=== PATIENT | female | born 1945 | race African-American/Black ===

== ENCOUNTER 2016-08-23 12:40 | Inpatient (IN) ==
--- NOTE | 2016-08-23 18:07 | Hospitalist History & Physical ---
Assessment and Plan - Time spent with patient Time spent with patient: Greater than 30 minutes (1) Acute on chronic renal failure Status: Acute Assessment and plan: Patient is noted to have acute on chronic renal failure. Her diuretics have been withheld as well as any rate limiting drugs. Will avoid any further nephrotoxic injury or insults. Of note on admission she was taken Aldactone, Coreg, hydrochlorothiazide, lisinopril, ketorolac all of which we will discontinue at this time. Will cautiously hydrate and consult Dr. Stanley Coates to assist. Will repeat laboratories at this time. Current Visit: Yes (2) Hypertension Status: Chronic Assessment and plan: Blood pressures currently well controlled. Will continue to follow. Current Visit: Yes Qualifiers: Hypertension type: essential hypertension Qualified Code(s): I10 - Essential (primary) hypertension (3) Hyperkalemia Status: Acute Assessment and plan: We will repeat electrolytes and renal function at this time and treat as appropriate. It has improved since being treated at [place]. Current Visit: Yes (4) Colon polyps Status: Chronic Assessment and plan: Patient has colon polyps and will need to have continued follow-up once her renal issues have resolved. Current Visit: Yes (5) Asthma Status: Chronic Assessment and plan: She has history of asthma and is currently stable. Current Visit: Yes (6) Diabetes mellitus Status: Chronic Assessment and plan: Patient has diabetes mellitus. At this time we will withhold her oral hypoglycemic agents and place on Accu-Cheks with sliding scale only. Current Visit: Yes Qualifiers: Diabetes mellitus type: type 2 (7) Sinus bradycardia Status: Acute Assessment and plan: Bradycardia has resolved with correction of her hyperkalemia and withholding her beta blockade. Current Visit: Yes History of Present Illness Chief complaint: Kidney failure, weakness History of present illness: Ms. Morales is a 71 year old female with a history of chronic kidney disease, hypertension, diabetes mellitus type 2 with peripheral neuropathy, asthma, arthritis who was admitted to the hospital and normal for decrease in mental status and bradycardia. According to their history she began having some nausea and vomiting on Monday and started taking Zofran. All weekend she had been drowsy and they thought it was secondary to medication. She was seen in the clinic by Dr. Renteria was noted to be bradycardic with a heart rate in the 30s. She was admitted for further care and evaluation and noted to be severely hyperkalemic with symptomatic bradycardia, metabolic acidosis, acute on chronic renal failure and was treated in the ICU with insulin, Kayexalate hydration and discontinuation of rate limiting drugs. Overnight her potassium went from 8.7 down to 6.0 however her creatinine remained fairly stable at 9.93 on admission to 9.64 at the time of transfer. Was felt that she would require transfer for for further evaluation and care including the possibility of dialysis. At this time the patient is awake alert and oriented 3 and states that she is been feeling cold over the past 2 months but denies all other complaints. Her current CODE STATUS is full code. Home Medications Medication Instructions Recorded Confirmed Type Carvedilol [Coreg] 6.25 mg PO BID 08/23/16 08/23/16 History Gabapentin Cap/Tab [Neurontin 300 mg PO DIRECTED 08/23/16 08/23/16 History Cap/Tab] Guaifen/Dextromethorphan/PE 1 tablet PO TID PRN 08/23/16 08/23/16 History [Deconex Dmx Tablet] Iron,Carb/Vit C/Vit B12/Folic 1 tablet PO DAILY 08/23/16 08/23/16 History [Icar-C Plus Tablet] Ketorolac Tab [Toradol Tab] 10 mg PO TID PRN 08/23/16 08/23/16 History Lisinopril/Hydrochlorothiazide 1 tablet PO DAILY 08/23/16 08/23/16 History [Lisinopril-Hctz 20-12.5 mg Tab] Montelukast Tab [Singulair Tab] 10 mg PO DIRECTED 08/23/16 08/23/16 History Ondansetron Tab [Zofran Tab] 4 mg PO Q6HR PRN 08/23/16 08/23/16 History Spironolactone [Aldactone] 25 mg PO DAILY 08/23/16 08/23/16 History Torsemide [Demadex Tab] 10 mg PO BID PRN 08/23/16 08/23/16 History amLODIPine [Norvasc] 10 mg PO DAILY 08/23/16 08/23/16 History hydrOXYzine pamoate [Hydroxyzine 25 mg PO TID PRN 08/23/16 08/23/16 History Pamoate] Medical,Surgical,& Family Hx - Medical History Cardio: History of: Hypertension HEENT: History of: Glaucoma Endocrine: History of: Diabetes Mellitus (NIDDM) Respiratory: History of: Asthma Renal: History of: Renal Failure (ckd) Gastrointestinal: History of: Polyps (prev. colonoscopy showed polyps) Other: History of: Cancer (report states polypss are cancerous) - Surgical History Abdominal Surgeries: Surgical HX of: Colonoscopy (polyps seen) Orthopedic Surgeries: Surgical HX of;: Orthopedic Surgery (ankle surg w/ rods and screws) - Family History Family History: Reports;: Family Diabetes, Family Heart Disease, Family Hypertension - Social History Smoking Status: Never smoker Frequency of Alcohol Use: None Type of Drug Use: None 12 point system: reviewed and no additional remarkable complaints except as stated Exam - Constitutional Vitals: Period Temp Pulse Resp BP Sys/Sarah Pulse Ox Last 24 Hr 96.9 F 77-78 15-17 133-141/55-71 99-100 General appearance: no acute distress - Head Head exam: Present: normocephalic, atraumatic - Eye Eye exam: Present: EOMI Pupils: Present: MARTIN - ENT ENT exam: Present: normal exam, normal oropharynx - Neck Neck exam: Present: normal inspection. Absent: lymphadenopathy, meningismus, tenderness, thyromegaly - Respiratory Respiratory exam: Present: clear to auscultation bilaterally. Absent: rales, rhonchi, wheezes - Cardiovascular Cardiovascular exam: Present: regular rate and rhythm. Absent: gallop, JVD, systolic murmur, tachycardia - GI/Abdominal GI/Abdominal exam: Present: normal bowel sounds, soft. Absent: mass, tenderness , rebound - Extremities Exam Extremities exam: Present: edema. Absent: calf tenderness - Back Exam Back exam: Present: normal inspection - Neurological Exam Neurological exam: Present: alert, oriented X3, CN II-XII intact, motor sensory deficit (Decreased sensation of lower extremities to light touch) - Psychiatric Psychiatric exam: Present: normal affect, normal mood. Absent: agitated, anxious - Skin Skin exam: Present: warm, dry. Absent: erythema, rash Results - Labs Labs: Laboratory studies from [facility] reveal a sodium of 135, potassium 6.0, chloride 101, CO2 of 19, BUN 126, creatinine 9.64, glucose 144, calcium 8.2. Renal ultrasound revealed medical renal disease with renal cortical thinning, no hydronephrosis, small 12 x 6 mm heterogeneous focus at the mid right renal cortex. Chest x-ray revealed blunting of the lateral costophrenic angle suggesting tiny pleural effusions. There is a band of density at the right lung base representing atelectasis. There was cardiomegaly without CHF. There is paratracheal fullness of uncertain etiology. EKG from August 23 at 8:46 AM revealed sinus bradycardia and a right bundle branch block ventricular rate of 53 - EKG EKG shows: bradycardia, sinus rhythm - Diagnostic Findings Procedure: Chest x-ray: report reviewed by me, Ultrasound: report reviewed by me
[2016-08-23] MEDS ORDERED: DEXTROSE 50% 25 GM/50 ML VIAL IV PRN (18:32)
[2016-08-23] MEDS ORDERED: GLUCAGON 1 MG VIAL IM PRN (18:32)
[2016-08-23] MEDS ORDERED: ONDANSETRON 4 MG TABLET PO PRN (18:34)
[2016-08-23] MEDS ORDERED: ALBUTEROL 1.25 MG/3 ML NEB RESP TX PRN (18:35)
[2016-08-23] MEDS: SODIUM CHLORIDE 0.9% 1,000 ML IV SCH (18:49)
[2016-08-23 19:34] LABS: Basophils % 0.2 % (0.0-0.8); Eosinophils # 0.1 10*3/uL (0.0-0.87); Eosinophils % 0.9 % (0.00-10.9); Hematocrit 33.1 VOL% (35.7-47.0); Hemoglobin 10.8 GM/DL (12.0-16.0); Immature Granulocytes % 0.7 %; Immature Granulocytes Absolute 0.11 #; Lymphocytes % 6.6 % (21.3-54.2); Mean Corpuscular HGB Conc 32.6 GM/DL (32-36); Mean Corpuscular Hemoglobin 27 PG (27-34); Mean Corpuscular Volume 81.7 FL (87-102); Mean Platelet Volume 10.9 FL (9.6-12.0); Monocytes # 0.8 10*3/uL (0.11-0.8); Monocytes % 5.2 % (1.7-12.7); Neutrophils # 13.1 10*3/uL (1.4-7.4); Neutrophils % 86.4 % (38.7-73.9); Platelet Count 339 T/CUMM (130-400); Red Blood Count 4.05 MC/CUMM (3.8-5.5); Red Cell Distribution Width 16.2 % (9.3-17.3); White Blood Count 15.1 T/CUMM (4-12)
[2016-08-23 19:46] LABS: Calcium 8.3 MG/DL (8.5-10.1); Osmolality,Calculated 311.5 MOS/KG (273-304); Potassium 5.2 MMOL/L (3.5-5.1)
[2016-08-23] MEDS: ALBUTEROL 1.25 MG/3 ML NEB RESP TX SCH (19:53)
[2016-08-23] MEDS: INSULIN LISPRO 100 UNIT/ML SUBCUT SCH (20:15)
[2016-08-23] MEDS: ENOXAPARIN 30 MG/0.3 ML SYRINGE SUBCUT SCH (20:20)
[2016-08-23] MEDS: MONTELUKAST 10 MG TABLET PO SCH (20:20)
[2016-08-23] MEDS ORDERED: GABAPENTIN 300 MG CAPSULE PO SCH (21:00)
--- NOTE | 2016-08-23 21:33 | Nephrology Consult Note ---
History of Present Illness Chief complaint: ARF on CRF History of present illness: Ms. Morales is a 71 year old female who underwent colonoscopy last week. Polyps were noted which could not be treated endoscopically. She was scheduled to have partial colectomy yesterday. She was bradycardic and nauseated when she presented for preop evaluation. Lab work showed severe hyperkalemia and renal failure. Creatinine was approximately 10 and potassium around 9. She was hospitalized in [place]. Hyperkalemia was treated. She was judged to be volume depleted and given IV fluids. Renal function had improved slightly this morning. Family requested transfer for further care. She has chronic renal failure secondary to diabetic nephropathy. Creatinine was 2.5 when I saw her as an outpatient 2 weeks ago. Home Medications Medication Instructions Recorded Confirmed Type Carvedilol [Coreg] 6.25 mg PO BID 08/23/16 08/23/16 History Gabapentin Cap/Tab [Neurontin 300 mg PO DIRECTED 08/23/16 08/23/16 History Cap/Tab] Guaifen/Dextromethorphan/PE 1 tablet PO TID PRN 08/23/16 08/23/16 History [Deconex Dmx Tablet] Iron,Carb/Vit C/Vit B12/Folic 1 tablet PO DAILY 08/23/16 08/23/16 History [Icar-C Plus Tablet] Ketorolac Tab [Toradol Tab] 10 mg PO TID PRN 08/23/16 08/23/16 History Lisinopril/Hydrochlorothiazide 1 tablet PO DAILY 08/23/16 08/23/16 History [Lisinopril-Hctz 20-12.5 mg Tab] Montelukast Tab [Singulair Tab] 10 mg PO DIRECTED 08/23/16 08/23/16 History Ondansetron Tab [Zofran Tab] 4 mg PO Q6HR PRN 08/23/16 08/23/16 History Spironolactone [Aldactone] 25 mg PO DAILY 08/23/16 08/23/16 History Torsemide [Demadex Tab] 10 mg PO BID PRN 08/23/16 08/23/16 History amLODIPine [Norvasc] 10 mg PO DAILY 08/23/16 08/23/16 History hydrOXYzine pamoate [Hydroxyzine 25 mg PO TID PRN 08/23/16 08/23/16 History Pamoate] Allergies Allergy/AdvReac Type Severity Reaction Status Date / Time No Known Allergies Allergy Verified 08/23/16 18:43 Medical,Surgical,& Family Hx - Medical History Cardio: History of: Hypertension HEENT: History of: Glaucoma Endocrine: History of: Diabetes Mellitus (NIDDM) Respiratory: History of: Asthma Renal: History of: Renal Failure (ckd) Gastrointestinal: History of: Polyps (prev. colonoscopy showed polyps) Other: History of: Cancer (report states polypss are cancerous) - Surgical History Abdominal Surgeries: Surgical HX of: Colonoscopy (polyps seen) Orthopedic Surgeries: Surgical HX of;: Orthopedic Surgery (ankle surg w/ rods and screws) - Family History Family History: Reports;: Family Diabetes, Family Heart Disease, Family Hypertension - Social History Smoking Status: Never smoker Frequency of Alcohol Use: None Type of Drug Use: None Review of Systems 12 point system: reviewed and no additional remarkable complaints except as stated Exam - Vital Signs Vital signs: Period Temp Pulse Resp BP Sys/Sarah Pulse Ox Last 24 Hr 96.9 F-97.5 F 72-85 15-20 133-148/55-71 98-100 Exam: Gen.: Alert. Mildly confused ENT: Pupils equal round reactive to light. EOMs intact. Mucous membranes moist. Neck: Supple. No JVD or bruit. Cardiovascular: Regular rate and rhythm. No murmur rub or gallop Lungs: Clear Abdomen: Soft. Nontender. Positive bowel sounds. No organomegaly Extremities: 1Plus edema Results - Labs CBC & BMP: 08/23/16 18:43 08/23/16 18:51 Assessment and Plan (1) Acute on chronic renal failure Status: Acute Assessment and plan: A 1-year-old woman admitted with: * CRF 3. Creatinine 2.5 on 08/08/2016 * ARF. This appears to be due to a combination of volume depletion, SHUN inhibitor, and diuretic. She likely became acutely volume depleted during prepped for colonoscopy and n.p.o. status before planned surgery. Lisinopril and diuretics discontinued. Agree with IV fluid * Hyperkalemia. Secondary to ARF plus lisinopril plus Aldactone. This has improved with treatment * Diabetes mellitus * Hypertension * Colon polyps Current Visit: Yes (2) Hyperkalemia Status: Acute Current Visit: Yes (3) Sinus bradycardia Status: Acute Current Visit: Yes (4) Colon polyps Status: Chronic Current Visit: Yes (5) Diabetes mellitus Status: Chronic Current Visit: Yes Qualifiers: Diabetes mellitus type: type 2 (6) Hypertension Status: Chronic Current Visit: Yes Qualifiers: Hypertension type: essential hypertension Qualified Code(s): I10 - Essential (primary) hypertension
[2016-08-24] MEDS: ALBUTEROL 1.25 MG/3 ML NEB RESP TX SCH ×4 (02:24→19:53)
[2016-08-24] MEDS: SODIUM CHLORIDE 0.9% 1,000 ML IV SCH ×3 (02:40→20:57)
[2016-08-24 04:25] LABS: Basophils % 0.2 % (0.0-0.8); Eosinophils % 0.2 % (0.00-10.9); Hematocrit 29.5 VOL% (35.7-47.0); Hemoglobin 9.5 GM/DL (12.0-16.0); Immature Granulocytes % 0.6 %; Lymphocytes # 0.9 10*3/uL (1.4-4.0); Lymphocytes % 5.5 % (21.3-54.2); Mean Corpuscular HGB Conc 32.2 GM/DL (32-36); Mean Corpuscular Hemoglobin 27 PG (27-34); Mean Corpuscular Volume 82.9 FL (87-102); Mean Platelet Volume 10.9 FL (9.6-12.0); Monocytes # 0.6 10*3/uL (0.11-0.8); Monocytes % 3.5 % (1.7-12.7); Neutrophils # 14.3 10*3/uL (1.4-7.4); Platelet Count 269 T/CUMM (130-400); Red Blood Count 3.56 MC/CUMM (3.8-5.5); Red Cell Distribution Width 16.3 % (9.3-17.3); White Blood Count 15.9 T/CUMM (4-12)
[2016-08-24 04:56] LABS: Calcium 8.3 MG/DL (8.5-10.1); Magnesium 3.4 MG/DL (1.8-2.4); Osmolality,Calculated 310.4 MOS/KG (273-304); Potassium 5.6 MMOL/L (3.5-5.1)
[2016-08-24] MEDS: INSULIN LISPRO 100 UNIT/ML SUBCUT SCH ×4 (08:00→20:56)
[2016-08-24] MEDS: IRON (CARBONYL)/VIT C/B12/FA TABLET PO SCH (09:25)
[2016-08-24] MEDS: amLODIPine 10 MG TABLET PO SCH (09:25)
--- NOTE | 2016-08-24 11:48 | Hospitalist Progress Note ---
Assessment and Plan (1) Acute on chronic renal failure Status: Acute Assessment and plan: 1)MARLEEN on CKD- resolving with hydration. She likely became dehydrated with colon prep for scope last week and when combined with aldactone and torodal she developed acute renal failure. baseline 2.5 hyperkalemia resolved. aldactone stopped Stop neuronitin until GFR nearer her baseline to avoid unintended somnolence. 2)sinus bradycardia- resolved when potssium corrected. restart coreg. 3)colon polyps- consult general surgery for plan for removal. One was cancerous per daughter. 4)HTN 5)poor appetite- due to uremia 6)ppx- on ppi and lovenox. 7)DM- SSI. 8)transfer to floor. Current Visit: Yes (2) Hypertension Status: Chronic Current Visit: Yes Qualifiers: Hypertension type: essential hypertension Qualified Code(s): I10 - Essential (primary) hypertension (3) Hyperkalemia Status: Acute Current Visit: Yes (4) Colon polyps Status: Chronic Current Visit: Yes (5) Asthma Status: Chronic Current Visit: Yes (6) Diabetes mellitus Status: Chronic Current Visit: Yes Qualifiers: Diabetes mellitus type: type 2 (7) Sinus bradycardia Status: Acute Current Visit: Yes Hospitalist: Subjective Interval history: Mrs Morales is doing much better than she was when I talked to Dr Welsh in [place] yesterday. Her heartrate is normal, her creatinine is down. She is breathing comfortably. Denies pain. Did not want breakfast. I was able also to talk to her daughter. Exam - Constitutional Vitals: Period Temp Pulse Resp BP Sys/Sarah Pulse Ox Last 24 Hr 96.9 F-99.6 F 72-91 15-26 132-151/50-71 97-100 General appearance: no acute distress, morbidly obese - Head Head exam: Present: normocephalic, atraumatic - Eye Eye exam: Present: EOMI. Absent: scleral icterus - Respiratory Respiratory exam: Present: clear to auscultation bilaterally - Cardiovascular Cardiovascular exam: Present: regular rate and rhythm - GI/Abdominal GI/Abdominal exam: Present: normal bowel sounds, soft. Absent: tenderness - Extremities Exam Extremities exam: Present: edema (trace lower extremity edema) Results - Labs CBC & BMP: 08/24/16 03:24 08/24/16 03:24 Lab Results: I have reviewed the past 24 hour labs
[2016-08-24] MEDS: CARVEDILOL 6.25 MG TABLET PO SCH ×2 (12:44→20:56)
[2016-08-24] MEDS ORDERED: ACETAMINOPHEN 325 MG TABLET ONE (13:41)
--- NOTE | 2016-08-24 13:47 | General Surgery Consult Note ---
Assessment and Plan - Time spent with patient Time spent with patient: Greater than 30 minutes (1) Leukocytosis Status: Acute Assessment and plan: Ms. Morales is a 71-year-old -[place] female with history of asthma, diabetes, hypertension and anemia admitted by the hospitalist service with hyperkalemia and bradycardia along with acute renal failure. Patient had undergone a colonoscopy and 3 large polyps were found that were unable to be removed at that time. Patient was transferred to [facility] for nephrology and evaluation by a surgeon. Dr. Coronel will evaluate patient and look at pathology reports. Patient will need to recover from her acute illness before surgery and he may order further testing. Dr. Coronel will see and examine patient and further recommendations to follow. In the meantime patient is running a fever and has increased leukocytosis. Blood, urine, and chest x-ray are all pending. Current Visit: Yes (2) Fever Status: Acute Current Visit: Yes (3) Acute on chronic renal failure Status: Acute Current Visit: Yes (4) Hypertension Status: Chronic Current Visit: Yes Qualifiers: Hypertension type: essential hypertension Qualified Code(s): I10 - Essential (primary) hypertension (5) Hyperkalemia Status: Acute Current Visit: Yes (6) Colon polyps Status: Chronic Current Visit: Yes (7) Asthma Status: Chronic Current Visit: Yes (8) Diabetes mellitus Status: Chronic Current Visit: Yes Qualifiers: Diabetes mellitus type: type 2 History of Present Illness Chief complaint: Poor appetite and weakness History of present illness: Ms. Morales is a 71 year old -[place] female with history of hypertension, diabetes, gastritis, chronic kidney disease admitted by the hospitalist on [address] [facility] with acute on chronic renal failure, hyperkalemia and sinus bradycardia. Patient was found to be anemic around 3 weeks ago and underwent a blood transfusion. She then underwent a colonoscopy in early July where 3 large polyps were found. 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 The pathology for the rectal polypoid mass was cut off on the transfer of paperwork. Patient was then sent to a surgeon on Monday for evaluation. She was found to be bradycardic and hyperkalemic and admitted to the hospital in [place]. Patient was transferred to [facility] for evaluation by nephrology. Dr. Coates has seen and examined patient and feels that her acute renal failure was due to a combination of volume depletion, SHUN inhibitor , and diuretic along with her prep for colonoscopy. Today she has started running a temperature of 100.1 and she is just not feeling well. Her white count is also elevated at 15.9. Her potassium is up a little bit to 5.6 but her creatinine has improved to 7.4. Patient denies headache, cough, congestion , dysphagia, chest pain, shortness of breath, abdominal pain, or lower extremity weakness. Blood cultures, urine cultures, and chest x-ray have all been ordered and are pending. Dr. Coronel has been consulted for evaluation of colon cancer. Home Medications Medication Instructions Recorded Confirmed Type Carvedilol [Coreg] 6.25 mg PO BID 08/23/16 08/23/16 History Gabapentin Cap/Tab [Neurontin 300 mg PO DIRECTED 08/23/16 08/23/16 History Cap/Tab] Guaifen/Dextromethorphan/PE 1 tablet PO TID PRN 08/23/16 08/23/16 History [Deconex Dmx Tablet] Iron,Carb/Vit C/Vit B12/Folic 1 tablet PO DAILY 08/23/16 08/23/16 History [Icar-C Plus Tablet] Ketorolac Tab [Toradol Tab] 10 mg PO TID PRN 08/23/16 08/23/16 History Lisinopril/Hydrochlorothiazide 1 tablet PO DAILY 08/23/16 08/23/16 History [Lisinopril-Hctz 20-12.5 mg Tab] Montelukast Tab [Singulair Tab] 10 mg PO DIRECTED 08/23/16 08/23/16 History Ondansetron Tab [Zofran Tab] 4 mg PO Q6HR PRN 08/23/16 08/23/16 History Spironolactone [Aldactone] 25 mg PO DAILY 08/23/16 08/23/16 History Torsemide [Demadex Tab] 10 mg PO BID PRN 08/23/16 08/23/16 History amLODIPine [Norvasc] 10 mg PO DAILY 06/27/17 06/27/17 History hydrOXYzine pamoate [Hydroxyzine 25 mg PO TID PRN 08/23/16 08/23/16 History Pamoate] Allergies Allergy/AdvReac Type Severity Reaction Status Date / Time No Known Allergies Allergy Verified 08/23/16 18:43 Medical,Surgical,& Family Hx - Medical History Cardio: History of: Hypertension HEENT: History of: Glaucoma Endocrine: History of: Diabetes Mellitus (NIDDM) Respiratory: History of: Asthma Renal: History of: Renal Failure (ckd) Gastrointestinal: History of: Polyps (prev. colonoscopy showed polyps) Other: History of: Cancer (report states polypss are cancerous) - Surgical History Abdominal Surgeries: Surgical HX of: Colonoscopy (polyps seen) Orthopedic Surgeries: Surgical HX of;: Orthopedic Surgery (ankle surg w/ rods and screws) - Family History Family History: Reports;: Family Diabetes, Family Heart Disease, Family Hypertension - Social History Smoking Status: Never smoker Frequency of Alcohol Use: None Type of Drug Use: None Marital Status: Lives With:: Spouse Functional capacity: independent ambulation Review of systems: A complete 10 system review of systems was obtained and pertinent positives and negatives per HPI Exam - Constitutional Vitals: Period Temp Pulse Resp BP Sys/Sarah Pulse Ox Last 24 Hr 96.9 F-100.1 F 72-92 15-26 132-151/50-71 97-100 Exam: Constitutional System: No distress. [No] tremulousness. Head: Normocephalic, atraumatic. Ears, Nose and Throat System: No evidence of Otitis or Mastoiditis. No epistaxis or discharge Eyes System: Pupils equal, round, and reactive. Extraocular muscles intact. Neck: Supple, without adenopathy, [No] jugular venous distention. No thyromegaly , neck mass, or prior surgery apparent. Respiratory System: Chest [clear] to auscultation. Cardiovascular System: Heart with [regular] rate and rhythm. [No] murmur. GI System: Abdomen [soft], [non]tender. [Normo]active bowel sounds present. Musculoskeletal System: limbs with [no] pedal edema. Diminished distal pulses. Neurological System: [No discernable] sensory deficit. [No] aphasia Psychiatric System: Conversation is [rational] Results - Labs CBC & BMP: 08/24/16 03:24 08/24/16 03:24 Lab Results: I have reviewed the past 24 hour labs
[2016-08-24] MEDS: ACETAMINOPHEN 325 MG TABLET PO PRN (13:48)
--- NOTE | 2016-08-24 14:55 | XRay Report ---
Portable chest Date: 08/24/2016 Clinical history: Shortness of breath Comparison: None Technique: Portable AP sitting chest Findings: The heart is minimally enlarged with calcification in the aortic knob. Expiratory chest with diffuse parenchymal findings especially at the lung bases with small pleural effusions. Degenerative changes are noted. Impression: Atelectasis/infiltration/edema at the lung bases with small pleural effusions. The heart is minimally enlarged. PROCEDURE INTERPRETED AT [facility] DEPARTMENT OF RADIOLOGY Final Report Signed by: Dr. Kendy Peter
--- NOTE | 2016-08-24 19:59 | Nephrology Progress Note ---
Nephrology - PN: Subj Interval history: She feels better overall today. Blood pressure has improved. No S OB Exam (PN)-Nephrology - Vital Signs Vital signs: Period Temp Pulse Resp BP Sys/Sarah Pulse Ox Last 24 Hr 97.5 F-100.1 F 72-100 18-26 130-151/50-64 97-100 Exam: Gen.: Alert ENT: Pupils equal round reactive to light. EOMs intact. Mucous membranes moist. Neck: Supple. No JVD or bruit. Cardiovascular: Regular rate and rhythm. No murmur rub or gallop Lungs: Clear Abdomen: Soft. Nontender. Positive bowel sounds. No organomegaly Extremities: 1+ edema - Lab 08/24/16 03:24 08/24/16 03:24 Most recent lab results Calcium 8.3 MG/DL (8.5-10.1) L 08/24/16 03:24 Magnesium 3.4 MG/DL (1.8-2.4) H 08/24/16 03:24 Assessment and Plan (1) Acute on chronic renal failure Status: Acute Assessment and plan: A 1-year-old woman admitted with: * CRF 3. Creatinine 2.5 on 08/08/2016 * ARF. Renal function is improving. Continue IV fluid * Hyperkalemia. Improved * Diabetes mellitus * Hypertension * Colon polyps Current Visit: Yes (2) Hyperkalemia Status: Acute Current Visit: Yes (3) Sinus bradycardia Status: Acute Current Visit: Yes (4) Colon polyps Status: Chronic Current Visit: Yes (5) Diabetes mellitus Status: Chronic Current Visit: Yes Qualifiers: Diabetes mellitus type: type 2 (6) Hypertension Status: Chronic Current Visit: Yes Qualifiers: Hypertension type: essential hypertension Qualified Code(s): I10 - Essential (primary) hypertension
[2016-08-24] MEDS: MONTELUKAST 10 MG TABLET PO SCH (20:56)
[2016-08-24] MEDS: ENOXAPARIN 30 MG/0.3 ML SYRINGE SUBCUT SCH (20:56)
[2016-08-25] MEDS: ALBUTEROL 1.25 MG/3 ML NEB RESP TX SCH ×4 (01:01→19:18)
[2016-08-25] MEDS: SODIUM CHLORIDE 0.9% 1,000 ML IV SCH ×2 (04:28→11:33)
[2016-08-25 07:02] LABS: Calcium 7.8 MG/DL (8.5-10.1); Potassium 5.5 MMOL/L (3.5-5.1)
[2016-08-25] MEDS: amLODIPine 10 MG TABLET PO SCH (08:31)
[2016-08-25] MEDS: PANTOPRAZOLE 40 MG TABLET PO SCH (08:31)
[2016-08-25] MEDS: IRON (CARBONYL)/VIT C/B12/FA TABLET PO SCH (08:31)
[2016-08-25] MEDS: CARVEDILOL 6.25 MG TABLET PO SCH ×2 (08:31→21:02)
[2016-08-25] MEDS: INSULIN LISPRO 100 UNIT/ML SUBCUT SCH ×4 (08:58→20:56)
[2016-08-25] MEDS: cefTRIAXone 1,000 MG in SODIUM CHLORIDE 0.9% 100 ML IV SCH (09:32)
[2016-08-25] MEDS: ALUMINUM/MAGNES/SIMETH MAX STR 30 ML UDCUP PO PRN ×2 (09:57→20:57)
--- NOTE | 2016-08-25 10:56 | Hospitalist Progress Note ---
Assessment and Plan - Time spent with patient Time spent with patient: Less than 30 minutes (1) Acute on chronic renal failure Status: Acute Assessment and plan: 08/25/16 Ms Morales very pleasant female in room 527: Dr armas following for renal function; renal function improving BUN 86 & Creatinine 5.20 down from BUN 103 & creatinine 7.40; Dr Armas in agreement that renal function is improving at this time; will continue to monitor. Glucose 119 this a.m.; A1c 08/24/16 7.2 continue SSI. HTN - BP stable at 120-130 over 57-77 at this time. Heart Rate in the 70's and 80's; Hyperkalemia - improving down 5.5 from 5.6 will repeat a.m. labs Temp is 98.2 this a.m. Current Visit: Yes (2) Fever Status: Acute Current Visit: Yes (3) Hyperkalemia Status: Acute Current Visit: Yes (4) Sinus bradycardia Status: Acute Current Visit: Yes (5) Asthma Status: Chronic Current Visit: Yes (6) Diabetes mellitus Status: Chronic Current Visit: Yes Qualifiers: Diabetes mellitus type: type 2 Hospitalist: Subjective Interval history: 08/25/16 - patient had a good night and is feeling better this a.m.; Denies SOB; cough; fever or chills. Noted a low grade temp @4 a.m. 99.7 but has resolved to 98.2. Exam - Constitutional Vitals: Period Temp Pulse Resp BP Sys/Sarah Pulse Ox Last 24 Hr 98.2 F-100.1 F 83-100 18-22 110-144/57-77 97-100 General appearance: over weight - Head Head exam: Present: normal inspection - Eye Eye exam: Present: EOMI Pupils: Present: MARTIN - Neck Neck exam: Present: normal inspection - Respiratory Respiratory exam: Present: clear to auscultation bilaterally - Cardiovascular Cardiovascular exam: Present: regular rate and rhythm - GI/Abdominal GI/Abdominal exam: Present: normal bowel sounds, soft. Absent: guarding, tenderness, rebound - Extremities Exam Extremities exam: Present: edema - Neurological Exam Neurological exam: Present: alert, oriented X3 - Psychiatric Psychiatric exam: Present: normal affect - Skin Skin exam: Present: normal color, warm, dry Results - Labs CBC & BMP: 08/24/16 03:24 08/25/16 05:38 Lab Results: I have reviewed the past 24 hour labs
--- NOTE | 2016-08-25 11:31 | General Surgery Progress Note ---
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 Plan: Overall patient continues to slowly improve. Ideally, the patient would need a subtotal colectomy given the location of the tumors. However I am not sure she would be able to tolerate such an extensive procedure. I think the best option would be referral to a colorectal specialist for their evaluation and I will discuss this with the patient and her family tomorrow. Current Visit: Yes Subjective Patient reports: Present: no new complaints Exam - Constitutional Vitals: Period Temp Pulse Resp BP Sys/Sarah Pulse Ox Last 24 Hr 98.2 F-100.1 F 83-100 18-20 110-137/57-77 97-100 General appearance: no acute distress - Neck Neck exam: Present: normal inspection - Respiratory Respiratory exam: Present: clear to auscultation bilaterally - Cardiovascular Cardiovascular exam: Present: RRR - GI/Abdominal GI/Abdominal exam: Present: soft (Nontender nondistended. No bleeding reported) - Neurological Exam Neurological exam: Present: alert Speech: Present: normal - Skin Skin exam: Present: normal color Results - Labs CBC & BMP: 08/24/16 03:24 08/25/16 05:38 Lab Results: I have reviewed the past 24 hour labs
--- NOTE | 2016-08-25 15:19 | Nephrology Progress Note ---
Nephrology - PN: Subj Interval history: Mental status normal. She denies shortness of breath. No nausea or vomiting Exam (PN)-Nephrology - Vital Signs Vital signs: Period Temp Pulse Resp BP Sys/Sarah Pulse Ox Last 24 Hr 98.2 F-99.7 F 80-100 18-20 110-135/57-77 97-100 Exam: ENT: Normal Cardiovascular: Regular rate and rhythm. No murmur rub or gallop Lungs: Clear Extremities: 1+ edema - Lab 08/24/16 03:24 08/25/16 05:38 Most recent lab results Calcium 7.8 MG/DL (8.5-10.1) L 08/25/16 05:38 Magnesium 3.4 MG/DL (1.8-2.4) H 08/24/16 03:24 Assessment and Plan (1) Acute on chronic renal failure Status: Acute Assessment and plan: A 1-year-old woman admitted with: * CRF 3. Creatinine 2.5 on 08/08/2016 * ARF. Renal function is improving. IV rate decreased * Hyperkalemia. Improved * Diabetes mellitus * Hypertension * Colon polyps Current Visit: Yes (2) Hyperkalemia Status: Acute Current Visit: Yes (3) Sinus bradycardia Status: Acute Current Visit: Yes (4) Colon polyps Status: Chronic Current Visit: Yes (5) Diabetes mellitus Status: Chronic Current Visit: Yes Qualifiers: Diabetes mellitus type: type 2 (6) Hypertension Status: Chronic Current Visit: Yes Qualifiers: Hypertension type: essential hypertension Qualified Code(s): I10 - Essential (primary) hypertension
[2016-08-25] MEDS: FLUCONAZOLE 200 MG TABLET PO SCH (15:41)
[2016-08-25 16:31] LABS: Hematocrit 30.2 VOL% (35.7-47.0); Hemoglobin 9.7 GM/DL (12.0-16.0)
[2016-08-25] MEDS: MONTELUKAST 10 MG TABLET PO SCH (20:44)
[2016-08-25] MEDS: ENOXAPARIN 30 MG/0.3 ML SYRINGE SUBCUT SCH (20:44)
[2016-08-26] MEDS: ALBUTEROL 1.25 MG/3 ML NEB RESP TX SCH ×4 (00:32→19:05)
[2016-08-26] MEDS: SODIUM CHLORIDE 0.9% 1,000 ML IV SCH ×3 (02:20→13:57)
[2016-08-26 06:00] LABS: Basophils # 0.1 10*3/uL (0.0-0.2); Basophils % 0.3 % (0.0-0.8); Eosinophils # 0.3 10*3/uL (0.0-0.87); Eosinophils % 1.5 % (0.00-10.9); Hematocrit 30.3 VOL% (35.7-47.0); Hemoglobin 9.6 GM/DL (12.0-16.0); Immature Granulocytes % 1.1 %; Immature Granulocytes Absolute 0.19 #; Lymphocytes % 11.2 % (21.3-54.2); Mean Corpuscular HGB Conc 31.7 GM/DL (32-36); Mean Corpuscular Hemoglobin 26 PG (27-34); Mean Corpuscular Volume 82.6 FL (87-102); Mean Platelet Volume 10.4 FL (9.6-12.0); Monocytes % 5.5 % (1.7-12.7); Neutrophils % 80.4 % (38.7-73.9); Platelet Count 271 T/CUMM (130-400); Red Blood Count 3.67 MC/CUMM (3.8-5.5); White Blood Count 17.4 T/CUMM (4-12)
[2016-08-26 06:34] LABS: Calcium 7.8 MG/DL (8.5-10.1); Osmolality,Calculated 306.8 MOS/KG (273-304); Potassium 4.9 MMOL/L (3.5-5.1)
[2016-08-26] MEDS: INSULIN LISPRO 100 UNIT/ML SUBCUT SCH ×5 (08:00→21:19)
[2016-08-26] MEDS: cefTRIAXone 1,000 MG in SODIUM CHLORIDE 0.9% 100 ML IV SCH (08:19)
[2016-08-26] MEDS: FLUCONAZOLE 200 MG TABLET PO SCH (08:19)
[2016-08-26] MEDS: PANTOPRAZOLE 40 MG TABLET PO SCH (08:20)
[2016-08-26] MEDS: IRON (CARBONYL)/VIT C/B12/FA TABLET PO SCH (08:20)
[2016-08-26] MEDS: CARVEDILOL 6.25 MG TABLET PO SCH ×2 (08:20→21:19)
[2016-08-26] MEDS: amLODIPine 10 MG TABLET PO SCH (08:20)
--- NOTE | 2016-08-26 09:32 | Hospitalist Progress Note ---
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 Dr Stanley armas continue to follow for improving renal function; BUN 70 and Creatinine 3.80 down from BUN 86 & Creatinine 5.20 Original Note: Assessment and Plan - Time spent with patient Time spent with patient: Less than 30 minutes (1) Acute on chronic renal failure Status: Acute Assessment and plan: 08/26/16 fever: Resolved at present 98.5 this a.m. WBC 17.4 increased from 15.9 currently on antibiotic coverage; repeat lab in a.m. Clostridium difficile toxin - negative for Cdiff A &/or B ag; 4+ positive for occult blood stool culture - pending final urine culture - pending final (yeast) blood culture - pending Hyperkalemia resolved at present down to 4.9 from 5.5. repeat labs in the a.m. Sinus bradycardia resolved at present heart rate 83-86. Continue current medications and monitor. Asthma: denies any SOB throughout the night: Continue albuterol treatments. Diabetes: Blood sugar 94 this a.m. Plan to continue current coverage with medications Will discuss with Dr. Major for any further recommendations. 08/25/16 Ms Morales very pleasant female in room 527: Dr armas following for renal function; renal function improving BUN 86 & Creatinine 5.20 down from BUN 103 & creatinine 7.40; Dr Armas in agreement that renal function is improving at this time; will continue to monitor. Glucose 119 this a.m.; A1c 08/24/16 7.2 continue SSI. HTN - BP stable at 120-130 over 57-77 at this time. Heart Rate in the 70's and 80's; Hyperkalemia - improving down 5.5 from 5.6 will repeat a.m. labs Temp is 98.2 this a.m. Current Visit: Yes (2) Fever Status: Acute Current Visit: Yes (3) Hyperkalemia Status: Acute Current Visit: Yes (4) Sinus bradycardia Status: Acute Current Visit: Yes (5) Asthma Status: Chronic Current Visit: Yes (6) Diabetes mellitus Status: Chronic Current Visit: Yes Qualifiers: Diabetes mellitus type: type 2 Hospitalist: Subjective Interval history: 08/26/16 sitting up in chair; eating breakfast; verbalize having a better night and verbalizing this morning she feels much better states "I feel much better after sitting up in chair and out of bed". Appears more energetic this morning ; denies any shortness of breath; nausea or vomiting; chills or fever; last temp noted 98.5. Exam - Constitutional Vitals: Period Temp Pulse Resp BP Sys/Sarah Pulse Ox Last 24 Hr 97.4 F-99.1 F 79-91 18-20 133-150/57-70 91-100 General appearance: over weight - Head Head exam: Present: normal inspection - Eye Eye exam: Present: EOMI Pupils: Present: MARTIN - Neck Neck exam: Present: normal inspection - Respiratory Respiratory exam: Present: clear to auscultation bilaterally - Cardiovascular Cardiovascular exam: Present: regular rate and rhythm (79-85 heart rate) - GI/Abdominal GI/Abdominal exam: Present: normal bowel sounds, hypoactive bowel sounds, soft. Absent: guarding, tenderness, rebound - Extremities Exam Extremities exam: Present: normal inspection, full ROM - Neurological Exam Neurological exam: Present: alert, oriented X3 - Psychiatric Psychiatric exam: Present: normal affect - Skin Skin exam: Present: normal color, warm, dry Results - Labs CBC & BMP: 08/26/16 05:21 08/26/16 05:21 Lab Results: I have reviewed the past 24 hour labs
--- NOTE | 2016-08-26 10:19 | General Surgery Progress Note ---
Assessment and Plan - Time spent with patient Time spent with patient: Less than 30 minutes (1) Leukocytosis Status: Acute Assessment and plan: Ms. Morales is a 71-year-old -[place] female with history of asthma, diabetes, hypertension and anemia admitted by the hospitalist service with hyperkalemia and bradycardia along with acute renal failure. Patient had undergone a colonoscopy and 3 large polyps were found that were unable to be removed at that time. Patient was transferred to [facility] for nephrology and evaluation by a surgeon. Dr. Coronel will evaluate patient and look at pathology reports. Patient will need to recover from her acute illness before surgery and he may order further testing. Dr. Coronel will see and examine patient and further recommendations to follow. In the meantime patient is running a fever and has increased leukocytosis. Blood, urine, and chest x-ray are all pending. 08/26/2016 Ms. Morales's renal failure has improved to 3.8 today. She is making good urine and it is clear. Her leukocytosis has risen to 17.4 today. Patient has been afebrile and her vital signs are stable. She is negative for C. difficile, urine is growing yeast and Diflucan was started yesterday. She is also on Rocephin. Blood cultures are negative after 1 day. She does have some positive occult blood in her stool but this is expected from her colon polyps and anemia. 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 Dr. Rodriguez discussed patient having surgery here versus going to a colorectal specialist for evaluation. If patient is still here on Monday Dr. Coronel will be happy to have this discussion with her. If she is discharged home we will make an appointment for follow-up with Dr. Coronel next week for surgical plans. Dr. Rodriguez has seen and examined patient for Dr. Coronel who is out today. Current Visit: Yes (2) Fever Status: Acute Current Visit: Yes (3) Acute on chronic renal failure Status: Acute Current Visit: Yes (4) Hypertension Status: Chronic Current Visit: Yes Qualifiers: Hypertension type: essential hypertension Qualified Code(s): I10 - Essential (primary) hypertension (5) Hyperkalemia Status: Acute Current Visit: Yes (6) Colon polyps Status: Chronic Current Visit: Yes (7) Asthma Status: Chronic Current Visit: Yes (8) Diabetes mellitus Status: Chronic Current Visit: Yes Qualifiers: Diabetes mellitus type: type 2 Subjective Narrative: pt feeling much better this morning. she has already been sitting up in chair and walking to the bathroom w her walker and some assistance. PT and OT are seeing her. she has no complaints of cough or sob, abd pain or dysuria. Exam - Constitutional Vitals: Period Temp Pulse Resp BP Sys/Sarah Pulse Ox Last 24 Hr 97.4 F-99.1 F 79-91 18-20 133-150/57-70 91-100 Exam: 71-year-old -Domin[place] female, no acute distress, alert and oriented Chest clear CV regular rate and rhythm Abdomen obese and nontender Extremities no edema, no sacral or heel wounds noted Results - Labs CBC & BMP: 08/26/16 05:21 08/26/16 05:21 Lab Results: I have reviewed the past 24 hour labs
[2016-08-26] MEDS: DESITIN 4OZ/NYSTATIN 15 GRAM MIXTURE PASTE TOP SCH ×2 (14:41→21:19)
--- NOTE | 2016-08-26 18:16 | Nephrology Progress Note ---
Nephrology - PN: Subj Interval history: She states she feels better overall. No shortness of breath. No abdominal pain or nausea Exam (PN)-Nephrology - Vital Signs Vital signs: Period Temp Pulse Resp BP Sys/Sarah Pulse Ox Last 24 Hr 97.4 F-99.1 F 78-91 16-20 122-142/57-70 91-100 Exam: ENT: Normal Cardiovascular: Regular rate and rhythm. No murmur rub or gallop Lungs: Clear Extremities: 1+ edema - Lab 08/26/16 05:21 08/26/16 05:21 Most recent lab results Calcium 7.8 MG/DL (8.5-10.1) L 08/26/16 05:21 Magnesium 3.4 MG/DL (1.8-2.4) H 08/24/16 03:24 Assessment and Plan (1) Acute on chronic renal failure Status: Acute Assessment and plan: A 1-year-old woman admitted with: * CRF 3. Creatinine 2.5 on 08/08/2016 * ARF. Renal function is improving. IV rate decreased * Hyperkalemia. Resolved Current Visit: Yes (2) Hyperkalemia Status: Acute Current Visit: Yes (3) Sinus bradycardia Status: Acute Current Visit: Yes (4) Colon polyps Status: Chronic Current Visit: Yes (5) Diabetes mellitus Status: Chronic Current Visit: Yes Qualifiers: Diabetes mellitus type: type 2 (6) Hypertension Status: Chronic Current Visit: Yes Qualifiers: Hypertension type: essential hypertension Qualified Code(s): I10 - Essential (primary) hypertension
[2016-08-26] MEDS: MONTELUKAST 10 MG TABLET PO SCH (21:19)
[2016-08-26] MEDS: ENOXAPARIN 30 MG/0.3 ML SYRINGE SUBCUT SCH (21:19)
[2016-08-27] MEDS: ALBUTEROL 1.25 MG/3 ML NEB RESP TX SCH ×4 (00:10→19:23)
[2016-08-27 07:18] LABS: Basophils # 0.1 10*3/uL (0.0-0.2); Basophils % 0.3 % (0.0-0.8); Eosinophils # 0.3 10*3/uL (0.0-0.87); Eosinophils % 1.8 % (0.00-10.9); Hematocrit 28.6 VOL% (35.7-47.0); Hemoglobin 9.1 GM/DL (12.0-16.0); Immature Granulocytes % 0.9 %; Immature Granulocytes Absolute 0.17 #; Lymphocytes # 1.9 10*3/uL (1.4-4.0); Lymphocytes % 10.3 % (21.3-54.2); Mean Corpuscular HGB Conc 31.8 GM/DL (32-36); Mean Corpuscular Hemoglobin 26 PG (27-34); Mean Corpuscular Volume 82.9 FL (87-102); Mean Platelet Volume 10.6 FL (9.6-12.0); Monocytes # 0.9 10*3/uL (0.11-0.8); Neutrophils # 15.1 10*3/uL (1.4-7.4); Neutrophils % 81.7 % (38.7-73.9); Platelet Count 265 T/CUMM (130-400); Red Blood Count 3.45 MC/CUMM (3.8-5.5); Red Cell Distribution Width 16.8 % (9.3-17.3); White Blood Count 18.5 T/CUMM (4-12)
[2016-08-27 07:42] LABS: Calcium 8.2 MG/DL (8.5-10.1); Osmolality,Calculated 303.7 MOS/KG (273-304); Potassium 4.5 MMOL/L (3.5-5.1)
[2016-08-27] MEDS: SODIUM CHLORIDE 0.9% 1,000 ML IV SCH (08:01)
[2016-08-27] MEDS: FLUCONAZOLE 200 MG TABLET PO SCH (08:02)
[2016-08-27] MEDS: IRON (CARBONYL)/VIT C/B12/FA TABLET PO SCH (08:02)
[2016-08-27] MEDS: PANTOPRAZOLE 40 MG TABLET PO SCH (08:02)
[2016-08-27] MEDS: cefTRIAXone 1,000 MG in SODIUM CHLORIDE 0.9% 100 ML IV SCH (08:02)
[2016-08-27] MEDS: CARVEDILOL 6.25 MG TABLET PO SCH ×2 (08:02→20:53)
[2016-08-27] MEDS: amLODIPine 10 MG TABLET PO SCH (08:02)
[2016-08-27] MEDS: DESITIN 4OZ/NYSTATIN 15 GRAM MIXTURE PASTE TOP SCH ×2 (08:04→21:13)
[2016-08-27] MEDS: INSULIN LISPRO 100 UNIT/ML SUBCUT SCH ×4 (08:05→21:12)
--- NOTE | 2016-08-27 10:36 | Nephrology Progress Note ---
Nephrology - PN: Subj Interval history: Ms. Sidhu is seen in follow-up of her acute renal failure which is improving. Creatinine is down to 3.0 today. She has a white count of 18,000 and it is not clear why she has that. She has been afebrile. Her urine culture grew 20-30, 000 colonies of yeast and she is receiving fluconazole for that and empiric ceftriaxone. She does have 1-2+ pretibial edema and her chest is clear. Recent chest x-ray demonstrated no significant infiltrate. I think the current antibiotics are reasonable but it is difficult to say if she has an active infection to explain the rising white count. We will continue to follow-up as her renal function should continue to improve. Exam (PN)-Nephrology - Vital Signs Vital signs: Period Temp Pulse Resp BP Sys/Sarah Pulse Ox Last 24 Hr 98.3 F-99.2 F 72-87 16-20 122-145/58-81 94-100 - Lab 08/27/16 05:55 08/27/16 05:55 Most recent lab results Calcium 8.2 MG/DL (8.5-10.1) L 08/27/16 05:55 Magnesium 2.2 MG/DL (1.8-2.4) 08/27/16 05:55
[2016-08-27] MEDS ORDERED: LEVOFLOXACIN 750 MG TABLET PO ONE (11:15)
[2016-08-27] MEDS ORDERED: FUROSEMIDE 40 MG TABLET PO ONE (11:19)
--- NOTE | 2016-08-27 11:41 | XRay Report ---
History: Elevated white blood cell count Date: 08/27/2016 Study: Chest x-ray PA and lateral Comparison exam: Chest x-ray August 24, 2016 The cardiac silhouette is not enlarged. The mediastinal contours are stable. There is no pulmonary vascular engorgement. There is some patchy and strandy atelectasis/infiltrate in the lower lobes bilaterally. These changes are slightly improved on the right, but slightly increased on the left. There is some increased mild bilateral pleural effusion. Osseous structures are unchanged. Impression: Bilateral lower lobe atelectasis/infiltrate which could represent pneumonia. These changes are slightly improved on the right, but slightly increased on the left. There is some increasing mild bilateral pleural effusion PROCEDURE INTERPRETED AT [facility] DEPARTMENT OF RADIOLOGY Final Report Signed by: Dr. Dasha Espinosa
--- NOTE | 2016-08-27 12:08 | Hospitalist Progress Note ---
Assessment and Plan - Time spent with patient Time spent with patient: Less than 30 minutes (1) Acute on chronic renal failure Status: Acute Assessment and plan: 08/27/16 fever: resolved 98.1 temp this a.m. WBC slight increase to 18.5 from 17.4 Blood culture - pending final results Hyperkalemia: resolved K 4.5 down from 4.9 Sinus bradycardia: resolved HR remains in the 70-80s Asthma: Continue albuterol treatments. Diabetes: BS 126 this a.m. will continue monitor closely and continue medications for coverage. Will not discharge today r/t slight increase of WBC labs without any obvious cause of increase. Will discontinue heart monitor. Will discontinue IV. And will re-evaluate labs in the morning. 08/26/16 fever: Resolved at present 98.5 this a.m. WBC 17.4 increased from 15.9 currently on antibiotic coverage; repeat lab in a.m. Clostridium difficile toxin - negative for Cdiff A &/or B ag; 4+ positive for occult blood stool culture - pending final urine culture - pending final (yeast) blood culture - pending Hyperkalemia resolved at present down to 4.9 from 5.5. repeat labs in the a.m. Sinus bradycardia resolved at present heart rate 83-86. Continue current medications and monitor. Asthma: denies any SOB throughout the night: Continue albuterol treatments. Diabetes: Blood sugar 94 this a.m. Plan to continue current coverage with medications Will discuss with Dr. Major for any further recommendations. 08/25/16 Ms Morales very pleasant female in room 527: Dr armas following for renal function; renal function improving BUN 86 & Creatinine 5.20 down from BUN 103 & creatinine 7.40; Dr Armas in agreement that renal function is improving at this time; will continue to monitor. Glucose 119 this a.m.; A1c 08/24/16 7.2 continue SSI. HTN - BP stable at 120-130 over 57-77 at this time. Heart Rate in the 70's and 80's; Hyperkalemia - improving down 5.5 from 5.6 will repeat a.m. labs Temp is 98.2 this a.m. Current Visit: Yes (2) Fever Status: Acute Current Visit: Yes (3) Hyperkalemia Status: Acute Current Visit: Yes (4) Sinus bradycardia Status: Acute Current Visit: Yes (5) Asthma Status: Chronic Current Visit: Yes (6) Diabetes mellitus Status: Chronic Current Visit: Yes Qualifiers: Diabetes mellitus type: type 2 Hospitalist: Subjective Interval history: 08/27/16 Ms Sidhu more energetic this a.m. Verbalized a good night, denies fever or chills, or cough. Creatinine is improved at 3.00. Her H&H remains stable. WBC had a slight increase 18.5 from 17.4; unsure why she had an increase. She urine culture grew yeast and is receiving fluconazole for that and has been on empiric ceftriaxone. Changed antibiotic to oral levaquin. This a.m. chest xray bilateral low lobe atelectasis/infiltrate which could represent pneumonia; these changes are slighlty improved on the right and left; there is some increasing mild bilateral pleural effusion. . Exam - Constitutional Vitals: Period Temp Pulse Resp BP Sys/Sarah Pulse Ox Last 24 Hr 98.3 F-99.2 F 72-87 16-20 122-145/58-81 94-100 General appearance: over weight - Head Head exam: Present: normal inspection - Eye Eye exam: Present: EOMI Pupils: Present: MARTIN - Neck Neck exam: Present: normal inspection - Respiratory Respiratory exam: Present: clear to auscultation bilaterally - Cardiovascular Cardiovascular exam: Present: regular rate and rhythm - GI/Abdominal GI/Abdominal exam: Present: normal bowel sounds, soft. Absent: tenderness, rebound - Extremities Exam Extremities exam: Present: edema (2+ bilateral) - Neurological Exam Neurological exam: Present: alert, oriented X3 - Psychiatric Psychiatric exam: Present: normal affect, normal mood - Skin Skin exam: Present: normal color, warm, dry Results - Labs CBC & BMP: 08/27/16 05:55 08/27/16 05:55 Lab Results: I have reviewed the past 24 hour labs - Diagnostic Findings Procedure: X-ray: report reviewed by me (Bilateral lower lobe atelectasis/ infiltrate which could represent pnuemonia; these changes are slightly improved on the right and slighly increase of left; there is come increasing mild bilateral pleural effusion)
[2016-08-27] MEDS ORDERED: CALCIUM CARBONATE CHEW 500 MG TABLET PO PRN (14:46)
[2016-08-27] MEDS: MONTELUKAST 10 MG TABLET PO SCH (20:53)
[2016-08-27] MEDS: ENOXAPARIN 30 MG/0.3 ML SYRINGE SUBCUT SCH (21:13)
[2016-08-28] MEDS: ALBUTEROL 1.25 MG/3 ML NEB RESP TX SCH ×4 (00:24→19:51)
[2016-08-28] MEDS: ACETAMINOPHEN 325 MG TABLET PO PRN ×2 (00:28→16:57)
[2016-08-28 05:57] LABS: Basophils % 0.3 % (0.0-0.8); Eosinophils # 0.3 10*3/uL (0.0-0.87); Eosinophils % 1.9 % (0.00-10.9); Hematocrit 26.7 VOL% (35.7-47.0); Hemoglobin 8.5 GM/DL (12.0-16.0); Immature Granulocytes % 0.6 %; Immature Granulocytes Absolute 0.09 #; Lymphocytes # 1.8 10*3/uL (1.4-4.0); Lymphocytes % 12.8 % (21.3-54.2); Mean Corpuscular HGB Conc 31.8 GM/DL (32-36); Mean Corpuscular Hemoglobin 26 PG (27-34); Mean Corpuscular Volume 82.9 FL (87-102); Mean Platelet Volume 10.1 FL (9.6-12.0); Monocytes % 6.8 % (1.7-12.7); Neutrophils # 10.9 10*3/uL (1.4-7.4); Neutrophils % 77.6 % (38.7-73.9); Platelet Count 234 T/CUMM (130-400); Red Blood Count 3.22 MC/CUMM (3.8-5.5); Red Cell Distribution Width 16.6 % (9.3-17.3)
[2016-08-28 06:49] LABS: Calcium 8.6 MG/DL (8.5-10.1); Osmolality,Calculated 297.6 MOS/KG (273-304); Potassium 4.3 MMOL/L (3.5-5.1)
[2016-08-28] MEDS: INSULIN LISPRO 100 UNIT/ML SUBCUT SCH ×4 (07:34→21:18)
[2016-08-28] MEDS: FLUCONAZOLE 200 MG TABLET PO SCH (08:17)
[2016-08-28] MEDS: DESITIN 4OZ/NYSTATIN 15 GRAM MIXTURE PASTE TOP SCH ×2 (08:18→21:18)
[2016-08-28] MEDS: PANTOPRAZOLE 40 MG TABLET PO SCH (08:18)
[2016-08-28] MEDS: CARVEDILOL 6.25 MG TABLET PO SCH ×2 (08:18→21:18)
[2016-08-28] MEDS: IRON (CARBONYL)/VIT C/B12/FA TABLET PO SCH (08:18)
[2016-08-28] MEDS: amLODIPine 10 MG TABLET PO SCH (08:18)
--- NOTE | 2016-08-28 09:38 | Nephrology Progress Note ---
Nephrology - PN: Subj Interval history: Ms. Morales is seen in follow-up of her acute renal failure. Her creatinine continues to fall toward her baseline. Creatinine today is 2.7. White blood cell count also is lower now 14,000 from 18,000. She is afebrile and feels well and hopes to go home. Her only complaint is of "gas" and she says the only way to treat that is by allowing her home so that she can eat her usual diet. From a renal standpoint I think she could be managed at home since she is now drinking well. Exam (PN)-Nephrology - Vital Signs Vital signs: Period Temp Pulse Resp BP Sys/Sarah Pulse Ox Last 24 Hr 97.6 F-100.0 F 63-83 16-96 118-152/49-70 96-99 - Lab 08/28/16 04:50 08/28/16 04:50 Most recent lab results Calcium 8.6 MG/DL (8.5-10.1) 08/28/16 04:50 Magnesium 2.2 MG/DL (1.8-2.4) 08/27/16 05:55
--- NOTE | 2016-08-28 10:48 | Hospitalist Progress Note ---
<Zach Campos - Last Filed: 08/28/16 10:45> Assessment and Plan (1) Acute on chronic renal failure Status: Acute Assessment and plan: Noted improvement in renal function; BUN noted at 38 creatinine at 2.70 today down from 52 and 3.0 yesterday. Nephrology is following. She will definitely need to see nephrology in the outpatient setting. We want to watch renal function 1 additional day; if no significant changes we will discharge tomorrow. Current Visit: Yes (2) Leukocytosis Status: Acute Assessment and plan: Noted decrease in WBCs; WBCs noted at 14 today down from 18.5. Antibiotics changed to p.o. on yesterday. We will continue Levaquin as previously ordered. Current Visit: Yes Hospitalist: Subjective Interval history: Patient seen and examined; chart reviewed. No significant overnight changes reported. Noted improvement in renal function; BUN noted at 38 creatinine 2.70 down from 52 and 3.0 WBCs down to 14.0. If no significant overnight changes; patient will be discharged home tomorrow morning. Exam - Constitutional Vitals: Period Temp Pulse Resp BP Sys/Sarah Pulse Ox Last 24 Hr 97.6 F-100.0 F 63-88 16-96 118-152/49-70 96-99 General appearance: normal weight, no acute distress - Head Head exam: Present: normal inspection, normocephalic, atraumatic - Eye Eye exam: Present: EOMI. Absent: conjunctival injection Pupils: Present: MARTIN, normal accommodation - ENT ENT exam: Present: normal exam, normal external ear exam, normal oropharynx - Neck Neck exam: Present: normal inspection. Absent: lymphadenopathy, meningismus, thyromegaly - Respiratory Respiratory exam: Present: clear to auscultation bilaterally. Absent: rales, rhonchi, stridor, wheezes - Cardiovascular Cardiovascular exam: Present: regular rate and rhythm - GI/Abdominal GI/Abdominal exam: Present: normal bowel sounds, soft - Extremities Exam Extremities exam: Present: normal inspection, normal capillary refill. Absent: edema - Back Exam Back exam: Present: normal inspection - Neurological Exam Neurological exam: Present: alert, oriented X3, CN II-XII intact - Psychiatric Psychiatric exam: Present: normal affect, normal mood - Skin Skin exam: Present: normal color, warm, dry Results - Labs CBC & BMP: 08/28/16 04:50 08/28/16 04:50 Lab Results: I have reviewed the past 24 hour labs <KoltonWilmar brown - Last Filed: 08/28/16 14:34> Exam - Constitutional Vitals: Period Temp Pulse Resp BP Sys/Sarah Pulse Ox Last 24 Hr 97.6 F-100.0 F 68-88 16-96 108-152/60-70 94-99 Results - Labs CBC & BMP: 08/28/16 04:50 08/28/16 04:50 - Impressions Patient seen and examined. Chart reviewed. Patient had a low grade fever of 100.0 today. Otherwise, she is hemodynamically and clinically stable. I have reviewed the progress note by TEDDY Campos, and I agree with the documentation in addition to the following: Active Issues: 1. Suspected pneumonia, cxray from 08/27/16 showed bilateral lower lobe infiltrate /atelectasis with slight increase on the left. Her leukocytosis has improved. She has low grade fevers. Will continue antibiotics and follow up chest x-ray. As long as fevers don't worsen and leukocytosis remains stable, can likely discharge on tomorrow. 2. h/o Asthma: stable; continue current brochodilator therapy 2. Funguria: on anti fungal; check qtc since on levaquin 3. Leukocytosis, improving 4. Acute on CKD: improving; continue to monitor; appreciate help by nephrology 5. Hyperkalemia: resolved 6. Sinus bradycardia: resolved; likely 2nd to previous hyperK state 7. DM: sugars improving; continue current therapy 8. Disposition: likely d/c tomorrow with PCM and nephrology follow up
[2016-08-28] MEDS ORDERED: SIMETHICONE CHEW 80 MG TABLET PO PRN (14:25)
--- NOTE | 2016-08-28 15:48 | XRay Report ---
History: Pneumonia Date: 08/28/2016 Study: Chest x-ray PA and lateral Comparison exam: 08/27/2016 There is continued patchy and strandy atelectasis/infiltrate in the right lower lobe, mildly increased. There is mild bilateral pleural effusion, right greater than left, as before. The cardiomediastinal silhouette is unchanged. The pulmonary vasculature is not engorged. The osseous structures are unchanged. Impression: Mildly increased pneumonia in the right lung base compared to the previous study PROCEDURE INTERPRETED AT [facility] DEPARTMENT OF RADIOLOGY Final Report Signed by: Dr. Dasha Espinosa
--- NOTE | 2016-08-28 18:05 | CT Report ---
History: Acute left lower abdominal pain Date: 08/28/2016 Study: CT abdomen and pelvis without contrast Comparison exam: No previous available Technique: Spiral CT sections were obtained from the lung bases to the pubic symphysis without contrast. The CT exam was performed using one or more of the following dose reduction techniques: Automated exposure control, adjustment of the mA and/or kV according to patient size, or use of iterative reconstruction technique. CT abdomen: There is some continued patchy right lower lobe pneumonia. There is mild platelike subsegmental atelectasis in the lung bases. There is mild bilateral pleural effusion. There is no evidence of pneumoperitoneum. The liver, bile ducts, contracted gallbladder, spleen, and adrenal glands are unremarkable. There is moderate diffuse fatty infiltration of the pancreas without focal pancreatic lesion of a gross nature. There is no radiopaque renal or ureteral stone. There is no gross renal parenchymal mass. There is some mild retroperitoneal lymphadenopathy, including a 10.2 mm short axis diameter left para-aortic node. The appendix is normal in caliber without obvious appendicitis. There is scattered diverticulosis, though no gross diverticulitis. The lack of oral contrast limits evaluation for wall thickening. There is no aneurysm of the moderately calcified abdominal aorta. There is irregularity and sclerosis of the endplates at L3-L4. This could be related to old healed discitis or chronic discitis. CT pelvis: Some small calcified fibroids are noted in the uterus. There is nonspecific mild trace free fluid in the pelvis. Impression: There is diverticulosis, though no evidence of gross diverticulitis Right lower lobe pneumonia Mild bilateral pleural effusion Sclerosis and irregularity of the opposing endplates at L3-L4 would suggest old healed discitis or chronic discitis PROCEDURE INTERPRETED AT [facility] DEPARTMENT OF RADIOLOGY Final Report Signed by: Dr. Dasha Espinosa
[2016-08-28] MEDS: ENOXAPARIN 30 MG/0.3 ML SYRINGE SUBCUT SCH (21:18)
[2016-08-28] MEDS: MONTELUKAST 10 MG TABLET PO SCH (21:18)
[2016-08-29] MEDS: ALBUTEROL 1.25 MG/3 ML NEB RESP TX SCH ×2 (00:26→07:33)
[2016-08-29 06:31] LABS: Basophils # 0.1 10*3/uL (0.0-0.2); Basophils % 0.4 % (0.0-0.8); Eosinophils # 0.3 10*3/uL (0.0-0.87); Eosinophils % 2.4 % (0.00-10.9); Hematocrit 27.4 VOL% (35.7-47.0); Hemoglobin 8.7 GM/DL (12.0-16.0); Immature Granulocytes Absolute 0.13 #; Lymphocytes # 1.9 10*3/uL (1.4-4.0); Mean Corpuscular HGB Conc 31.8 GM/DL (32-36); Mean Corpuscular Hemoglobin 26 PG (27-34); Mean Corpuscular Volume 83.3 FL (87-102); Mean Platelet Volume 9.9 FL (9.6-12.0); Monocytes % 7.7 % (1.7-12.7); Neutrophils # 10.1 10*3/uL (1.4-7.4); Neutrophils % 74.5 % (38.7-73.9); Platelet Count 227 T/CUMM (130-400); Red Blood Count 3.29 MC/CUMM (3.8-5.5); Red Cell Distribution Width 16.3 % (9.3-17.3); White Blood Count 13.6 T/CUMM (4-12)
--- NOTE | 2016-08-29 06:51 | EKG Report ---
Stationary ECG Study [facility] Test Date: 08/29/2016 6:50:20 AM Pat Name: LOURDES HEMPHILL Department: Room: 527 Gender: F At Risk Paraprofessional: JUAN RAMON : 1945 Requested by: Wilmar [facility] Order Number: [id number] Reading MD: KAHLIL RODGERS Intervals [place] Rate: 69 P: 77 NM: 162 QRS: -77 QRSD: 121 T: 45 QT: 419 QTc: 438 Interpretive Statements SINUS RHYTHM MARKED LEFT AXIS DEVIATION RIGHT BUNDLE BRANCH BLOCK Electronically Signed On 08-29-16 08:56:30 CDT by KAHLIL RODGERS [email or web address]
[2016-08-29 06:58] LABS: Calcium 8.4 MG/DL (8.5-10.1); Magnesium 1.7 MG/DL (1.8-2.4); Osmolality,Calculated 291.8 MOS/KG (273-304); Potassium 4.2 MMOL/L (3.5-5.1)
[2016-08-29] MEDS ORDERED: MAGNESIUM SULF RIDER 2 GM in PREMIX 1 EACH IV ONE (07:22)
[2016-08-29] MEDS: INSULIN LISPRO 100 UNIT/ML SUBCUT SCH (08:03)
[2016-08-29 08:17] VITALS: BP 129/62
[2016-08-29] MEDS: FLUCONAZOLE 200 MG TABLET PO SCH (08:49)
[2016-08-29] MEDS: CARVEDILOL 6.25 MG TABLET PO SCH (08:49)
[2016-08-29] MEDS: amLODIPine 10 MG TABLET PO SCH (08:49)
[2016-08-29] MEDS: PANTOPRAZOLE 40 MG TABLET PO SCH (08:49)
[2016-08-29] MEDS: IRON (CARBONYL)/VIT C/B12/FA TABLET PO SCH (08:49)
[2016-08-29] MEDS: DESITIN 4OZ/NYSTATIN 15 GRAM MIXTURE PASTE TOP SCH (08:50)
[2016-08-29] MEDS ORDERED: MAGNESIUM OXIDE 400 MG TABLET PO ONE (09:17)
--- NOTE | 2016-08-29 09:33 | Discharge Summary ---
Hospital Course - Hospital Course Hospital Course: Mrs Morales presented from [place] with hyperkalemia, MARLEEN on CKD, and bradycardia. She had developed this after colon prep for Cscope which found malignant polyps. She was also on ACEI, aldactone and torodol routinely. Her bradycardia improved when her potassium came down with kayexalate. Her renal function returned to baseline over days with IVF hydration. She has been feeling well for several days now. She ran low grade temps and had an elevated WBC but no focal symptoms. Her CXR showed LLL infiltrate after she was adequately hydrated and her WBC has improved with antibiotics. A few days ago she was changed to oral levaquin and she will continue this as an outpatient to complete treatment. She will stop aldactone, ACEI, torodol. She will change torsemide to 10 mg once a day instead of twice for now. She will see Dr Infante for follow up CXR. She will see her switch coupler DR Coates in a month. She will see Dr Coronel in his clinic next week to finalize plans for surgery for her malignant polyp and the other benign ones found at recent cscope. - Time spent with patient Time with patient DS: Greater than 30 minutes (coordination of care for discharge with surgery, nursing, patient, exam, medicine reconciliation, documentation.) Diagnosis - Discharge Diagnosis (1) Acute on chronic renal failure Status: Resolved (2) Hypertension Status: Chronic (3) Hyperkalemia Status: Resolved (4) Colon polyps Status: Chronic (5) Asthma Status: Chronic (6) Diabetes mellitus Status: Chronic (7) Sinus bradycardia Status: Resolved Specialty Discharge - Follow Up or Referrals Follow up with: Dr Julian Infante [Other] (2 weeks with CXR) Stanley Coates MD [Physician] - 1 Month Jose A Coronel MD [Physician] - (nexrt week) Discharge Plan - Discharge Data Disposition: Disch To Home/Self Care Condition at Discharge: Stable Discharge Diet: diabetic diet, heart healthy Activity: resume usual activities as tolerated - Discharge Medications New Fluconazole Tab [Diflucan Tab] 200 mg PO DAILY #5 tablet Pantoprazole Tab [Protonix Tab] 40 mg PO DAILY #30 tablet Simethicone Chew Tab [Mylicon Chew Tab] 80 mg PO BID PRN tablet PRN Reason: Gas Torsemide [Demadex Tab] 10 mg PO DAILY #30 tablet Calcium Carbonate Chew [Tums] 2 tablet PO QID PRN tablet PRN Reason: Dyspepsia Levofloxacin Tab [Levaquin Tab] 500 mg PO Q48H #4 tablet Continue Guaifen/Dextromethorphan/PE [Deconex Dmx Tablet] 1 tablet PO TID PRN PRN Reason: Congestion Ondansetron Tab [Zofran Tab] 4 mg PO Q6HR PRN PRN Reason: Nausea hydrOXYzine pamoate [Hydroxyzine Pamoate] 25 mg PO TID PRN PRN Reason: Anxiety amLODIPine [Norvasc] 10 mg PO DAILY Gabapentin Cap/Tab [Neurontin Cap/Tab] 300 mg PO DIRECTED Carvedilol [Coreg] 6.25 mg PO BID Montelukast Tab [Singulair Tab] 10 mg PO DIRECTED Iron,Carb/Vit C/Vit B12/Folic [Icar-C Plus Tablet] 1 tablet PO DAILY Discontinued Lisinopril/Hydrochlorothiazide [Lisinopril-Hctz 20-12.5 mg Tab] 1 tablet PO DAILY Ketorolac Tab [Toradol Tab] 10 mg PO TID PRN PRN Reason: Pain Spironolactone [Aldactone] 25 mg PO DAILY - Follow Up or Referral Follow Up: Dr Julian Infante [Other] (2 weeks with CXR) Jose A Coronel MD [Physician] - (nexrt week) Stanley Coates MD [Physician] - 1 Month - Forms/Instructions Exam - Constitutional Vitals: Period Temp Pulse Resp BP Sys/Sarah Pulse Ox Last 24 Hr 97.4 F-98.8 F 66-103 16-20 108-129/53-70 94-100 General appearance: normal weight, no acute distress - Head Head exam: Present: normocephalic, atraumatic - Eye Eye exam: Present: EOMI. Absent: scleral icterus - Respiratory Respiratory exam: Present: clear to auscultation bilaterally - Cardiovascular Cardiovascular exam: Present: regular rate and rhythm - GI/Abdominal GI/Abdominal exam: Present: normal bowel sounds, soft. Absent: tenderness - Extremities Exam Extremities exam: Absent: edema Discharge Results Procedures and tests throughout hospitalization: Pending Orders 08/24/16 13:33 Blood Culture Stat 08/25/16 13:50 Occult Blood, Stool Stat stool [C. Diff Toxins A & B] Stat Labs on day of discharge: Labs from last 24 hours 08/29/16 08/29/16 08/28/16 05:42 05:42 19:17 WBC 13.6 H RBC 3.29 L Hgb 8.7 L Hct 27.4 L MCV 83.3 L MCH 26 L MCHC 31.8 L RDW 16.3 Plt Count 227 MPV 9.9 Neut % (Auto) 74.5 H Lymph % (Auto) 14.0 L [place] % (Auto) 7.7 Eos % (Auto) 2.4 Baso % (Auto) 0.4 Neut # (Auto) 10.1 H Lymph # (Auto) 1.9 [place] # (Auto) 1.0 H Eos # (Auto) 0.3 Baso # (Auto) 0.1 Immature Gran % 1.0 Nucleated RBC % 0.0 Immature Gran # 0.13 Nucleated RBCs # 0.00 Sodium 144 Potassium 4.2 Chloride 111 H Carbon Dioxide 24 Anion Gap 13.2 BUN 29 H Creatinine 2.50 H GFR Calculation 22 BUN/Creatinine Ratio 11.00 Glucose 93 POC Glucose 143 H Calculated Osmolality 291.8 Calcium 8.4 L Magnesium 1.7 L 08/28/16 08/28/16 08/28/16 16:11 11:57 07:45 WBC RBC Hgb Hct MCV MCH MCHC RDW Plt Count MPV Neut % (Auto) Lymph % (Auto) [place] % (Auto) Eos % (Auto) Baso % (Auto) Neut # (Auto) Lymph # (Auto) [place] # (Auto) Eos # (Auto) Baso # (Auto) Immature Gran % Nucleated RBC % Immature Gran # Nucleated RBCs # Sodium Potassium Chloride Carbon Dioxide Anion Gap BUN Creatinine GFR Calculation BUN/Creatinine Ratio Glucose POC Glucose 195 H 180 H 113 H Calculated Osmolality Calcium Magnesium Preliminary micro results at discharge 08/24/16 13:33 Blood Culture - Preliminary Blood No growth at 3 days 08/24/16 13:33 Blood Culture - Preliminary Blood No growth at 3 days DS: Provider Date of admission: 08/23/16 18:32 Primary care physician: . No PCP Attending physician on admission: Theresa Major MD Consults: 08/23/16 18:32 Consult to Physician [CONS] Routine Comment: MARLEEN/CKD, hyperkalemia Consulting Provider: Stanley Coates Person Notified: escobar Date Notified: 08/24/16 Time Notified: 08:36 Consult Notification Comment: clinic stated MD aware 08/24/16 12:26 Consult to Physician [CONS] Routine Comment: colon cancer Consulting Provider: Jose A Coronel Person Notified: [email or web address] Date Notified: 08/24/16 Time Notified: 14:50 08/25/16 08:12 Consult to Case Mgmt/Social Srvs [CONS] Routine Reason for Case Mgmt/Social Srvs: Swingbed/SNF/Long-Term Consult to Occupational Therapy [CONS] Routine Reason for Occupational Therapy: Weakness Consult to Physical Therapy [CONS] Routine Reason for Physical Therapy: Weakness Discharging clinician: Theresa Major MD
--- NOTE | 2016-08-29 09:44 | Nephrology Progress Note ---
Nephrology - PN: Subj Interval history: Ms. Morales is seen in follow-up of her renal impairment. Her serum creatinine is down to 2.5 and she is anxious to be discharged. She has a clear chest and is in no distress no changes are made and she will be discharged today. Exam (PN)-Nephrology - Vital Signs Vital signs: Period Temp Pulse Resp BP Sys/Sarah Pulse Ox Last 24 Hr 97.4 F-98.8 F 66-103 16-20 108-129/53-70 94-100 - Lab 08/29/16 05:42 08/29/16 05:42 Most recent lab results Calcium 8.4 MG/DL (8.5-10.1) L 08/29/16 05:42 Magnesium 1.7 MG/DL (1.8-2.4) L 08/29/16 05:42 Specialty Discharge - Follow Up or Referrals Follow up with: Dr Julian Infante [Other] (2 weeks with CXR) Jose A Coronel MD [Physician] - (nexrt week) Stanley Coates MD [Physician] - 1 Month
[2016-08-29] MEDS ORDERED: LEVOFLOXACIN 500 MG TABLET PO SCH (11:30)
--- NOTE | 2016-08-29 11:37 | Event Note ---
Patient seen this morning on rounds. Discussed my recommendations for colorectal surgery referral with the patient and family member present. They state they would like to go to [place]. I will see them in my office next week to arrange that referral.
== END 2016-08-29 11:04 | disposition swing bed (61) | DRG 683 ==
LOC: N.CC 16:50 → SUATTDRO 18:32 → N.5E 08-24 12:25
PROVIDERS: ADMIT Internal Medicine; ATTEND Internal Medicine

== ENCOUNTER 2017-11-25 02:50 | Inpatient (IN) ==
[2017-11-25] MEDS ORDERED: ETOMIDATE 20 MG/10 ML VIAL IV STA (02:56)
[2017-11-25] MEDS ORDERED: ROCURONIUM 100 MG/10 ML VIAL IV STA (02:56)
[2017-11-25] MEDS ORDERED: CALCIUM CHLORIDE 1,000 MG/10 ML SYRINGE IV STA (02:57)
[2017-11-25] MEDS ORDERED: DEXTROSE 50% 25 GM/50 ML VIAL IV STA (02:57)
[2017-11-25] MEDS ORDERED: SODIUM BICARBONATE 50 MEQ/50 ML VIAL IV STA ×2 (02:57)
[2017-11-25] MEDS ORDERED: INSULIN REGULAR 100 UNIT/ML IV STA ×2 (02:58→04:08)
[2017-11-25 03:28] LABS: Basophils % 0.2 % (0.0-0.8); Eosinophils % 0.1 % (0.00-10.9); Hematocrit 25.1 VOL% (35.7-47.0); Hemoglobin 7.8 GM/DL (12.0-16.0); Immature Granulocytes % 2.6 %; Immature Granulocytes Absolute 0.34 #; Lymphocytes # 2.9 10*3/uL (1.4-4.0); Lymphocytes % 22.1 % (21.3-54.2); Mean Corpuscular HGB Conc 31.1 GM/DL (32-36); Mean Corpuscular Hemoglobin 27 PG (27-34); Mean Corpuscular Volume 87.2 FL (87-102); Mean Platelet Volume 10.1 FL (9.6-12.0); Monocytes # 0.2 10*3/uL (0.11-0.8); Monocytes % 1.1 % (1.7-12.7); NRBC # 0.04 10*3/uL; Neutrophils # 9.7 10*3/uL (1.4-7.4); Neutrophils % 73.9 % (38.7-73.9); Platelet Count 321 T/CUMM (130-400); Red Blood Count 2.88 MC/CUMM (3.8-5.5); Red Cell Distribution Width 12.7 % (9.3-17.3); White Blood Count 13.1 T/CUMM (4-12)
[2017-11-25 03:34] LABS: ABG Base Excess -6.8 MMOL/L (-2.5-2.5); ABG HCO3 18.5 MMOL/L (20-26); ABG Oxygen Saturation 76.9 % (95-100); ABG PH 7.284 (7.35-7.45); ABG PO2 50.4 MM HG (80-95); ABG TCO2 18.2 MMOL/L (23-27)
[2017-11-25 03:43] LABS: Alanine Aminotransferase 64 U/L (13-56); Albumin 2.8 G/DL (3.4-5.0); Alkaline Phosphatase 124 U/L (45-117); Aspartate Amino Transferase 104 U/L (0-37); Bilirubin,Total < 0.39 MG/DL (0.2-1.0); Blood Urea Nitrogen 47 MG/DL (7-18); Calcium 10.8 MG/DL (8.5-10.1); Osmolality,Calculated 310.8 MOS/KG (273-304); Sodium 130 MMOL/L (136-145); Total Protein 6.2 G/DL (6.4-8.3)
[2017-11-25 03:48] LABS: Glucose 799 MG/DL (74-106); Potassium 7.8 MMOL/L (3.5-5.1)
[2017-11-25 03:49] LABS: Apearance,Urine CLOUDY (Clear); Bacteria,Urine Occasional /HPF (Few); Bilirubin,Urine Negative (Negative); Blood, Urine Negative (Negative); Glucose,Urine (UA) Negative (Negative); Hyaline Casts,Urine 16 /LPF (0-3); Ketones,Urine Negative (Negative); Nitrite,Urine Negative (Negative); Protein,Urine 100 MG/DL; Squamous Epithelial Cell,Urine Occasional /HPF (0-10); Urine Color Yellow (Yellow); Urine Urobilinogen < 2.0 EU/DL (0.2-1.0); WBC,Urine 1 /HPF (0-6)
[2017-11-25] MEDS ORDERED: ONDANSETRON 4 MG/2 ML VIAL IV PRN (04:59)
[2017-11-25] MEDS ORDERED: DEXTROSE 5% NACL 0.9% 1,000 ML IV SCH (05:00)
[2017-11-25] MEDS ORDERED: GLUCAGON 1 MG VIAL IM PRN (05:34)
[2017-11-25] MEDS ORDERED: DEXTROSE 50% 25 GM/50 ML VIAL IV PRN (05:34)
[2017-11-25] MEDS: SODIUM CHLORIDE 0.9% 1,000 ML IV SCH (06:39)
[2017-11-25] MEDS ORDERED: SODIUM POLYSTYRENE SULFATE 15 GM/60 ML BOTTLE PO ONE (06:59)
[2017-11-25 08:09] LABS: ABG Base Excess -1.7 MMOL/L (-2.5-2.5); ABG HCO3 20.4 MMOL/L (20-26); ABG Oxygen Saturation 98.5 % (95-100); ABG PCO2 26.4 MM HG (35-48); ABG PH 7.506 (7.35-7.45); ABG PO2 129.9 MM HG (80-95); ABG TCO2 21.2 MMOL/L (23-27)
[2017-11-25] MEDS: ENOXAPARIN 30 MG/0.3 ML SYRINGE SUBCUT SCH (08:10)
[2017-11-25] MEDS: amLODIPine 10 MG TABLET PO SCH (08:10)
[2017-11-25] MEDS: PANTOPRAZOLE 40 MG VIAL IV SCH (08:10)
[2017-11-25] MEDS ORDERED: FUROSEMIDE 100 MG/10 ML VIAL IV ONE (08:14)
[2017-11-25] MEDS ORDERED: FUROSEMIDE 40 MG TABLET PO SCH (09:00)
[2017-11-25] MEDS ORDERED: TORSEMIDE 20 MG TABLET PO SCH (09:00)
[2017-11-25] MEDS: PROPOFOL 1,000 MG/100 ML BOTTLE IV SCH ×3 (09:39→20:05)
[2017-11-25 10:01] LABS: Calcium 9.9 MG/DL (8.5-10.1)
[2017-11-25 10:04] LABS: Potassium 6.4 MMOL/L (3.5-5.1)
[2017-11-25] MEDS: CARVEDILOL 6.25 MG TABLET PO SCH ×2 (14:51→21:34)
[2017-11-25] MEDS: ACETAMINOPHEN 325 MG TABLET PO PRN ×2 (16:14→21:35)
[2017-11-26] MEDS: PROPOFOL 1,000 MG/100 ML BOTTLE IV SCH ×5 (00:05→21:00)
[2017-11-26] MEDS: SODIUM CHLORIDE 0.9% 1,000 ML IV SCH (03:38)
[2017-11-26 04:05] LABS: ABG Base Excess 3.8 MMOL/L (-2.5-2.5); ABG HCO3 23.5 MMOL/L (20-26); ABG Oxygen Saturation 98.9 % (95-100); ABG PCO2 22.6 MM HG (35-48); ABG PO2 191.2 MM HG (80-95); ABG TCO2 24.1 MMOL/L (23-27)
[2017-11-26 05:18] LABS: Basophils % 0.2 % (0.0-0.8); Eosinophils % 0.3 % (0.00-10.9); Hematocrit 28.2 VOL% (35.7-47.0); Hemoglobin 9.4 GM/DL (12.0-16.0); Immature Granulocytes % 1.1 %; Immature Granulocytes Absolute 0.14 #; Lymphocytes # 1.9 10*3/uL (1.4-4.0); Lymphocytes % 15.2 % (21.3-54.2); Mean Corpuscular HGB Conc 33.3 GM/DL (32-36); Mean Corpuscular Hemoglobin 27 PG (27-34); Mean Corpuscular Volume 81.5 FL (87-102); Mean Platelet Volume 9.7 FL (9.6-12.0); Monocytes % 7.8 % (1.7-12.7); NRBC # 0.09 10*3/uL; Neutrophils # 9.5 10*3/uL (1.4-7.4); Neutrophils % 75.4 % (38.7-73.9); Platelet Count 342 T/CUMM (130-400); Red Blood Count 3.46 MC/CUMM (3.8-5.5); Red Cell Distribution Width 12.7 % (9.3-17.3); White Blood Count 12.6 T/CUMM (4-12)
[2017-11-26 05:35] LABS: Albumin 2.8 G/DL (3.4-5.0); Bilirubin,Total 0.5 MG/DL (0.2-1.0); Calcium 9.3 MG/DL (8.5-10.1); Osmolality,Calculated 287.5 MOS/KG (273-304); Potassium 3.8 MMOL/L (3.5-5.1); Total Protein 6.7 G/DL (6.4-8.3)
[2017-11-26 05:37] LABS: Calcium 9.3 MG/DL (8.5-10.1); Osmolality,Calculated 294.1 MOS/KG (273-304); Potassium 3.3 MMOL/L (3.5-5.1)
[2017-11-26] MEDS: ENOXAPARIN 30 MG/0.3 ML SYRINGE SUBCUT SCH (08:34)
[2017-11-26] MEDS: CARVEDILOL 6.25 MG TABLET PO SCH ×2 (08:35→21:56)
[2017-11-26] MEDS: amLODIPine 10 MG TABLET PO SCH (08:35)
[2017-11-26] MEDS: PANTOPRAZOLE 40 MG VIAL IV SCH (08:35)
[2017-11-26] MEDS: MONTELUKAST 10 MG TABLET PO SCH (17:23)
[2017-11-27] MEDS: SODIUM CHLORIDE 0.9% 1,000 ML IV SCH ×2 (01:00→20:09)
[2017-11-27 03:53] LABS: Basophils # 0.1 10*3/uL (0.0-0.2); Basophils % 0.3 % (0.0-0.8); Eosinophils # 0.1 10*3/uL (0.0-0.87); Eosinophils % 0.4 % (0.00-10.9); Hematocrit 27.6 VOL% (35.7-47.0); Hemoglobin 8.8 GM/DL (12.0-16.0); Immature Granulocytes % 0.8 %; Immature Granulocytes Absolute 0.11 #; Lymphocytes # 1.9 10*3/uL (1.4-4.0); Lymphocytes % 13.3 % (21.3-54.2); Mean Corpuscular HGB Conc 31.9 GM/DL (32-36); Mean Corpuscular Hemoglobin 27 PG (27-34); Mean Corpuscular Volume 84.4 FL (87-102); Mean Platelet Volume 9.7 FL (9.6-12.0); Monocytes # 1.1 10*3/uL (0.11-0.8); Monocytes % 7.3 % (1.7-12.7); NRBC # 0.02 10*3/uL; Neutrophils # 11.2 10*3/uL (1.4-7.4); Neutrophils % 77.9 % (38.7-73.9); Platelet Count 344 T/CUMM (130-400); Red Blood Count 3.27 MC/CUMM (3.8-5.5); Red Cell Distribution Width 12.7 % (9.3-17.3); White Blood Count 14.3 T/CUMM (4-12)
[2017-11-27 04:14] LABS: Calcium 7.8 MG/DL (8.5-10.1); Osmolality,Calculated 293.8 MOS/KG (273-304); Potassium 2.7 MMOL/L (3.5-5.1)
[2017-11-27 05:19] LABS: ABG Base Excess -0.1 MMOL/L (-2.5-2.5); ABG HCO3 21.8 MMOL/L (20-26); ABG Oxygen Saturation 96.6 % (95-100); ABG PCO2 27.1 MM HG (35-48); ABG PH 7.523 (7.35-7.45); ABG PO2 91.7 MM HG (80-95); ABG TCO2 22.6 MMOL/L (23-27)
[2017-11-27 05:35] LABS: ABG PH 7.634 (7.35-7.45)
[2017-11-27] MEDS: PROPOFOL 1,000 MG/100 ML BOTTLE IV SCH (06:04)
[2017-11-27] MEDS ORDERED: LIDOCAINE 1% 20 ML VIAL MISC INJ ONE (07:30)
[2017-11-27] MEDS ORDERED: LIDOCAINE 2% 20 ML VIAL RESP TX ONE (07:30)
[2017-11-27] MEDS: PANTOPRAZOLE 40 MG VIAL IV SCH (08:18)
[2017-11-27] MEDS: PIPERACILLIN/TAZOBACTAM 3,375 MG in SODIUM CHLORIDE 0.9% 100 ML IV SCH ×2 (08:20→20:17)
[2017-11-27] MEDS: ENOXAPARIN 30 MG/0.3 ML SYRINGE SUBCUT SCH (09:10)
[2017-11-27] MEDS: CARVEDILOL 6.25 MG TABLET PO SCH ×2 (09:15→20:17)
[2017-11-27] MEDS: amLODIPine 10 MG TABLET PO SCH (09:15)
[2017-11-27 10:19] LABS: ABG HCO3 22.2 MMOL/L (20-26); ABG Oxygen Saturation 95.8 % (95-100); ABG PCO2 35.9 MM HG (35-48); ABG PO2 89.2 MM HG (80-95); ABG TCO2 23.3 MMOL/L (23-27)
[2017-11-27] MEDS ORDERED: POTASSIUM CHLORIDE 20 MEQ/15 ML UDCUP PO ONE (11:59)
[2017-11-27 12:00] LABS: ABG Base Excess -3.6 MMOL/L (-2.5-2.5); ABG HCO3 21.4 MMOL/L (20-26); ABG Oxygen Saturation 97.1 % (95-100); ABG PH 7.351 (7.35-7.45); ABG PO2 99.5 MM HG (80-95)
[2017-11-27] MEDS: ALBUTEROL 2.5 MG/3 ML NEB RESP TX PRN ×2 (15:02→18:06)
[2017-11-27] MEDS: MONTELUKAST 10 MG TABLET PO SCH (18:15)
[2017-11-27] MEDS: ALBUTEROL 2.5 MG/3 ML NEB RESP TX SCH (19:10)
[2017-11-27] MEDS: ACETAMINOPHEN 325 MG TABLET PO PRN (20:39)
[2017-11-28] MEDS: ALBUTEROL 2.5 MG/3 ML NEB RESP TX SCH ×4 (01:04→18:55)
[2017-11-28 04:24] LABS: Calcium 7.7 MG/DL (8.5-10.1); Osmolality,Calculated 302.4 MOS/KG (273-304); Potassium 3.4 MMOL/L (3.5-5.1)
[2017-11-28] MEDS: SODIUM CHLORIDE 0.45% 1,000 ML IV SCH (06:48)
[2017-11-28] MEDS: PIPERACILLIN/TAZOBACTAM 3,375 MG in SODIUM CHLORIDE 0.9% 100 ML IV SCH ×2 (07:40→18:33)
[2017-11-28] MEDS ORDERED: INSULIN REGULAR 100 UNIT/ML SUBCUT SCH ×2 (08:30→12:00)
[2017-11-28] MEDS: PANTOPRAZOLE 40 MG VIAL IV SCH (08:45)
[2017-11-28] MEDS: ACETAMINOPHEN 325 MG TABLET PO PRN (08:50)
[2017-11-28] MEDS: ENOXAPARIN 30 MG/0.3 ML SYRINGE SUBCUT SCH (08:50)
[2017-11-28] MEDS: amLODIPine 10 MG TABLET PO SCH (08:50)
[2017-11-28] MEDS: CARVEDILOL 6.25 MG TABLET PO SCH ×2 (08:50→21:13)
[2017-11-28] MEDS: INSULIN LISPRO 100 UNIT/ML SUBCUT SCH ×2 (12:05→18:32)
[2017-11-28] MEDS: MONTELUKAST 10 MG TABLET PO SCH (18:31)
[2017-11-28] MEDS: ACETAMINOPHEN 500 MG TABLET PO PRN (20:30)
[2017-11-28] MEDS ORDERED: CARVEDILOL 6.25 MG TABLET PO SCH (21:00)
[2017-11-29] MEDS: ALBUTEROL 2.5 MG/3 ML NEB RESP TX SCH ×4 (00:35→19:44)
[2017-11-29] MEDS: INSULIN LISPRO 100 UNIT/ML SUBCUT SCH ×4 (01:24→18:26)
[2017-11-29 05:23] LABS: Calcium 8.3 MG/DL (8.5-10.1); Osmolality,Calculated 303.1 MOS/KG (273-304); Potassium 2.8 MMOL/L (3.5-5.1)
[2017-11-29] MEDS ORDERED: SPIRONOLACTONE 25 MG TABLET PO SCH (09:00)
[2017-11-29] MEDS: PANTOPRAZOLE 40 MG TABLET PO SCH (10:09)
[2017-11-29] MEDS: IRON (CARBONYL)/VIT C/B12/FA TABLET PO SCH (10:09)
[2017-11-29] MEDS: ENOXAPARIN 30 MG/0.3 ML SYRINGE SUBCUT SCH (10:09)
[2017-11-29] MEDS: amLODIPine 10 MG TABLET PO SCH (10:09)
[2017-11-29] MEDS: CARVEDILOL 6.25 MG TABLET PO SCH ×2 (10:09→20:46)
[2017-11-29] MEDS ORDERED: POTASSIUM CHLORIDE RIDER 10 MEQ in PREMIX 1 EACH IV PRN (11:30)
[2017-11-29] MEDS: PIPERACILLIN/TAZOBACTAM 3,375 MG in SODIUM CHLORIDE 0.9% 100 ML IV SCH (11:33)
[2017-11-29] MEDS ORDERED: POTASSIUM CHLORIDE 20 MEQ TABLET PO ONE (12:10)
[2017-11-29] MEDS: MONTELUKAST 10 MG TABLET PO SCH (18:27)
[2017-11-29] MEDS: SODIUM CHLORIDE 0.45% 1,000 ML IV SCH ×2 (23:18→23:50)
[2017-11-29] MEDS ORDERED: guaiFENesin 200 MG/10 ML UDCUP PO PRN (23:59)
[2017-11-30] MEDS: SODIUM CHLORIDE 0.45% 1,000 ML IV SCH (00:10)
[2017-11-30] MEDS: PIPERACILLIN/TAZOBACTAM 3,375 MG in SODIUM CHLORIDE 0.9% 100 ML IV SCH (00:40)
[2017-11-30] MEDS: INSULIN LISPRO 100 UNIT/ML SUBCUT SCH ×3 (00:52→12:31)
[2017-11-30] MEDS: ALBUTEROL 2.5 MG/3 ML NEB RESP TX SCH ×3 (01:05→12:49)
[2017-11-30] MEDS: ACETAMINOPHEN 500 MG TABLET PO PRN (04:48)
[2017-11-30 07:36] LABS: Basophils # 0.1 10*3/uL (0.0-0.2); Basophils % 0.4 % (0.0-0.8); Eosinophils # 0.4 10*3/uL (0.0-0.87); Eosinophils % 2.4 % (0.00-10.9); Hematocrit 25.5 VOL% (35.7-47.0); Hemoglobin 8.1 GM/DL (12.0-16.0); Immature Granulocytes % 2.5 %; Immature Granulocytes Absolute 0.45 #; Lymphocytes % 11.4 % (21.3-54.2); Mean Corpuscular HGB Conc 31.8 GM/DL (32-36); Mean Corpuscular Hemoglobin 27 PG (27-34); Mean Corpuscular Volume 85.3 FL (87-102); Mean Platelet Volume 9.6 FL (9.6-12.0); Monocytes # 1.5 10*3/uL (0.11-0.8); Monocytes % 8.1 % (1.7-12.7); Neutrophils # 13.4 10*3/uL (1.4-7.4); Neutrophils % 75.2 % (38.7-73.9); Platelet Count 339 T/CUMM (130-400); Red Blood Count 2.99 MC/CUMM (3.8-5.5); Red Cell Distribution Width 13.2 % (9.3-17.3); White Blood Count 17.8 T/CUMM (4-12)
[2017-11-30] MEDS ORDERED: DOXYCYCLINE HYCLATE INJ 100 MG in SODIUM CHLORIDE 0.9% 100 ML IV SCH (09:00)
[2017-11-30] MEDS: IRON (CARBONYL)/VIT C/B12/FA TABLET PO SCH (10:01)
[2017-11-30] MEDS: amLODIPine 10 MG TABLET PO SCH (10:01)
[2017-11-30] MEDS: CARVEDILOL 6.25 MG TABLET PO SCH (10:01)
[2017-11-30] MEDS: PANTOPRAZOLE 40 MG TABLET PO SCH (10:01)
[2017-11-30] MEDS: ENOXAPARIN 30 MG/0.3 ML SYRINGE SUBCUT SCH (10:02)
[2017-11-30 15:49] VITALS: BP 134/59
== END 2017-11-30 16:15 | disposition home health service (06) | DRG 208 ==
LOC: N.ED 02:50 → SUATTDRO 04:57 → N.EDINP 04:57 → N.ICU 05:43 → N.2E 11-28 15:30
PROVIDERS: ADMIT Internal Medicine; ATTEND Internal Medicine

== ENCOUNTER 2018-12-30 23:26 | Inpatient (IN) ==
[2018-12-31] MEDS ORDERED: ALBUTEROL/IPRATROPIUM 3 ML NEB RESP TX STA (00:11)
[2018-12-31 00:25] LABS: Basophils # 0.1 10*3/uL (0.0-0.2); Basophils % 0.3 % (0.0-0.8); Eosinophils # 0.1 10*3/uL (0.0-0.87); Eosinophils % 0.6 % (0.00-10.9); Hematocrit 33.6 VOL% (35.7-47.0); Immature Granulocytes % 0.3 %; Immature Granulocytes Absolute 0.05 #; Lymphocytes # 1.8 10*3/uL (1.4-4.0); Lymphocytes % 11.5 % (21.3-54.2); Mean Corpuscular HGB Conc 32.7 GM/DL (32-36); Mean Corpuscular Volume 78.5 FL (87-102); Mean Platelet Volume 10.2 FL (9.6-12.0); Monocytes % 4.8 % (1.7-12.7); Neutrophils % 82.5 % (38.7-73.9); Platelet Count 349 T/CUMM (130-400); Red Blood Count 4.28 MC/CUMM (3.8-5.5); Red Cell Distribution Width 14.6 % (9.3-17.3); White Blood Count 15.9 T/CUMM (4-12)
[2018-12-31 00:28] LABS: PT Patient Result 10.9 SECS (9.6-12.2)
[2018-12-31 00:48] LABS: Alanine Aminotransferase 13 U/L (13-56); Albumin 3.8 G/DL (3.4-5.0); Alkaline Phosphatase 61 U/L (45-117); Aspartate Amino Transferase 19 U/L (0-37); Blood Urea Nitrogen 76 MG/DL (7-18); Estimated Glom Filtration Rate 13 ML/MIN; Glucose 213 MG/DL (74-106); Osmolality,Calculated 296.2 MOS/KG (273-304); Total Protein 8.8 G/DL (6.4-8.3); Troponin I < 0.015 NG/ML (0.00-0.045)
[2018-12-31] MEDS ORDERED: SODIUM CHLORIDE 0.9% 1,000 ML IV STA (00:51)
[2018-12-31] MEDS ORDERED: POTASSIUM CHLORIDE 20 MEQ TABLET PO STA (01:06)
[2018-12-31] MEDS ORDERED: ACETAMINOPHEN 325 MG TABLET PO PRN (03:11)
[2018-12-31] MEDS ORDERED: GLUCAGON 1 MG VIAL IM PRN (03:11)
[2018-12-31] MEDS ORDERED: ONDANSETRON 4 MG/2 ML VIAL IV PRN (03:11)
[2018-12-31] MEDS ORDERED: DEXTROSE 50% 25 GM/50 ML VIAL IV PRN (03:11)
[2018-12-31] MEDS ORDERED: DOCUSATE SODIUM 100 MG CAPSULE PO PRN (03:11)
[2018-12-31] MEDS ORDERED: HydrOXYzine PAMOATE 25 MG CAPSULE PO PRN (03:22)
[2018-12-31 05:30] LABS: Basophils % 0.3 % (0.0-0.8); Eosinophils # 0.1 10*3/uL (0.0-0.87); Eosinophils % 0.7 % (0.00-10.9); Hematocrit 28.3 VOL% (35.7-47.0); Immature Granulocytes % 0.3 %; Immature Granulocytes Absolute 0.04 #; Lymphocytes # 1.7 10*3/uL (1.4-4.0); Lymphocytes % 14.1 % (21.3-54.2); Mean Corpuscular HGB Conc 31.8 GM/DL (32-36); Mean Corpuscular Volume 79.3 FL (87-102); Mean Platelet Volume 10.4 FL (9.6-12.0); Monocytes % 5.4 % (1.7-12.7); Neutrophils % 79.2 % (38.7-73.9); Platelet Count 295 T/CUMM (130-400); Red Blood Count 3.57 MC/CUMM (3.8-5.5); Red Cell Distribution Width 14.5 % (9.3-17.3); White Blood Count 12.3 T/CUMM (4-12)
[2018-12-31] MEDS: SODIUM CHLORIDE 0.9% 1,000 ML IV SCH (05:34)
[2018-12-31] MEDS: POTASSIUM CHLORIDE 20 MEQ TABLET PO PRN ×4 (05:34→12:17)
[2018-12-31 05:47] LABS: Osmolality,Calculated 299.8 MOS/KG (273-304)
[2018-12-31 06:27] LABS: Apearance,Urine CLEAR (Clear); Bilirubin,Urine Negative (Negative); Blood, Urine Negative (Negative); Glucose,Urine (UA) Negative (Negative); Hyaline Casts,Urine 9 /LPF (0-3); Ketones,Urine Negative (Negative); Mucus,Urine Occasional /LPF (Occasional); Nitrite,Urine Negative (Negative); Protein,Urine Negative; RBC,Urine 2 /HPF (0-4); Squamous Epithelial Cell,Urine Occasional /HPF (0-10); Urine Color Straw (Yellow); Urine Specific Gravity 1.008 (1.001-1.035); Urine Urobilinogen < 2.0 EU/DL (0.2-1.0); WBC,Urine <1 /HPF (0-6)
[2018-12-31] MEDS ORDERED: ALBUTEROL 2.5 MG/3 ML NEB RESP TX PRN (07:00)
[2018-12-31] MEDS: amLODIPine 10 MG TABLET PO SCH (08:11)
[2018-12-31] MEDS: PANTOPRAZOLE 40 MG TABLET PO SCH (08:11)
[2018-12-31] MEDS: MONTELUKAST 10 MG TABLET PO SCH (08:24)
[2018-12-31] MEDS: POTASSIUM CHLORIDE 20 MEQ TABLET PO SCH ×2 (08:24→21:20)
[2018-12-31] MEDS ORDERED: NON-FORMULARY MEDICATION (Omeprazole 40 MG) PO SCH (09:00)
[2018-12-31] MEDS: INSULIN LISPRO 100 UNIT/ML SUBCUT SCH ×4 (09:05→21:21)
[2019-01-01 05:44] LABS: Calcium 8.9 MG/DL (8.5-10.1); Osmolality,Calculated 304.8 MOS/KG (273-304)
[2019-01-01] MEDS: POTASSIUM CHLORIDE 20 MEQ TABLET PO PRN (06:55)
[2019-01-01] MEDS: SODIUM CHLORIDE 0.9% 1,000 ML IV SCH ×2 (06:56→06:58)
[2019-01-01] MEDS: MONTELUKAST 10 MG TABLET PO SCH (09:26)
[2019-01-01] MEDS: PANTOPRAZOLE 40 MG TABLET PO SCH (09:26)
[2019-01-01] MEDS: amLODIPine 10 MG TABLET PO SCH (09:26)
[2019-01-01] MEDS: POTASSIUM CHLORIDE 20 MEQ TABLET PO SCH (09:26)
[2019-01-01] MEDS: INSULIN LISPRO 100 UNIT/ML SUBCUT SCH ×2 (09:27→12:17)
[2019-01-01 12:35] VITALS: BP 121/66
== END 2019-01-01 15:43 | disposition home health service (06) | DRG 684 ==
LOC: N.ED 23:26 → N.EDINP 12-31 01:57 → N.5E 12-31 02:16
PROVIDERS: ADMIT Internal Medicine; ATTEND Internal Medicine